=== PATIENT | male | born 1960 | race Caucasian/White ===

== ENCOUNTER → 2017-02-01 | Outpatient (CLI) | payer MEDICARE, BC, OTHER ==
[~2017-02-01] MED LIST: /CELE20CA PO; /FEXO18TA OR; BIOF4GEL2 TOP; CETI10TA PO; DEPA500T2 PO; FLEXERIL OR; GABA300C2 PO; MULTIVIT OR; OMEP40CA2 PO; PERC5TAB8 OR; PRAV40TA2 PO; PROP10TA8 PO; SOMA350T PO; SUMA50TA2 PO; ULTR50TA PO; VITA500C24 PO; VOLT1GEL2 TD; ZIPSOR OR
--- NOTE | 2017-02-01 16:49 | REP ---
CT Head without contrast HISTORY: Migraine headache COMPARISON: None There is no intraparenchymal hemorrhage, acute infarct, mass or midline shift. The ventricular system is normal in appearance. There is no extra cerebral collection. There is no fracture. The visualized sinuses are clear. IMPRESSION: There is no intracranial lesion. Signed by Azael Kumar MD 02/01/2017 04:40 P
--- NOTE | 2017-02-01 18:54 | REP ---
CT CERVICAL SPINE WITHOUT CONTRAST: HISTORY: Migraine headache. There is no acute fracture or subluxation. Disc bulges are present at the C5-6 and C6-7 levels. There is minimal narrowing of the spinal canal. Uncinate process hypertrophy is present at the C5-6 and C6-7 levels. This produces minimal narrowing of the neural foramina. The C5-6 and C6-7 intervertebral discs are decreased in height consistent with disc degeneration. IMPRESSION: There is cervical spondylosis at the C5-6 and C6-7 levels. Signed by Azael Kumar MD 02/02/2017 08:57 A
== END ==
LOC: M RAD 16:17
PROVIDERS: ATTEND Physician Assistant Medical
DX: G43.009 Migraine without aura, not intractable, without status migrainosus (principal); H53.8 Other visual disturbances

== ENCOUNTER 2019-10-09 06:47 | Day surgery (SDC) | payer MEDICARE, BC, OTHER ==
[~2019-10-09] VITALS: Ht 180.3 cm; Wt 79.4 kg
[~2019-10-09 06:47] MED LIST changes: -/CELE20CA PO; +CELE1CAP4 PO; +IRON65TA2 PO; +KP F1200 PO; +MODA200T15 PO; +MULTCAP PO; -OMEP40CA2 PO; +OMEP40CA97 PO; +PROP10TA56 PO; +QC A10TA PO; +RA T500C2 PO; +REST0.05 OD; +RIZA10TA2 PO; +TOPI25TA10 PO; +TRAM50TA2 PO; +[UNRECOGNIZED DRUG - CODE] EXT
[2019-10-09] MEDS ORDERED: propofoL 200 MG/20 ML VIAL As Ordered ONE (07:58)
--- NOTE | 2019-10-09 07:58 | ROOR ---
Patient Name: Kun Rhoades Procedure Date: 10/09/2019 7:30 AM Date of : 1960 Age: 59 Room: [facility] Gender: Male Note Status: Finalized Procedure: Colonoscopy Indications: Screening for colorectal malignant neoplasm Providers: Harrison HEMPHILL MD Referring MD: STEVE CENTENO NP Requesting Provider: Medicines: Monitored Anesthesia Care Complications: No immediate complications. Procedure: Pre-Anesthesia Assessment: - The heart rate, respiratory rate, oxygen saturations, blood pressure, adequacy of pulmonary ventilation, and response to care were monitored throughout the procedure. The Colonoscope was introduced through the anus and advanced to the cecum, identified by appendiceal orifice and ileocecal valve. The colonoscopy was performed without difficulty. The patient tolerated the procedure well. The quality of the bowel preparation was good. Findings: The perianal and digital rectal examinations were normal. The colon (entire examined portion) was redundant. Small Internal Hemorrhoids. The entire examined colon appeared normal on direct and retroflexion views. Impression: - Small Internal Hemorrhoids. - The entire examined colon is normal on direct and retroflexion views. - No specimens collected. Recommendation: - Repeat colonoscopy in 10 years for screening purposes. Harrison Hemphill MD Harrison HEMPHILL MD 10/09/2019 7:58:29 AM Electronically signed by Harrison HEMPHILL MD Number of Addenda: 0 Note Initiated On: 10/09/2019 7:30 AM Estimated Blood Loss: Estimated blood loss: none.
[2019-10-09 08:23] VITALS: BP 125/69
== END 2019-10-09 08:23 | disposition home or self-care (01) ==
LOC: M OPP 06:47
PROVIDERS: ATTEND Internal Medicine Gastroenterology
DX: Z12.11 Encounter for screening for malignant neoplasm of colon (principal); Q43.8 Other specified congenital malformations of intestine; K64.8 Other hemorrhoids; Z88.5 Allergy status to narcotic agent; Z88.8 Allergy status to other drugs, medicaments and biological substances; Z91.041 Radiographic dye allergy status

== ENCOUNTER → 2020-02-04 | Outpatient (REF) | payer MEDICARE, OTHER | LOC: M LAB REF 08:24 | PROVIDERS: ATTEND Dermatology | DX: C44.310 Basal cell carcinoma of skin of unspecified parts of face (principal) ==

== ENCOUNTER → 2020-03-08 | Outpatient (REF) | payer MEDICARE, OTHER | LOC: M LAB REF 12:56 | PROVIDERS: ATTEND Dermatology | DX: L90.5 Scar conditions and fibrosis of skin (principal) ==

== ENCOUNTER → 2020-06-29 | Outpatient (REF) | payer MEDICARE, OTHER | LOC: M LAB REF 19:01 | PROVIDERS: ATTEND Dermatology | DX: L57.0 Actinic keratosis (principal); D22.4 Melanocytic nevi of scalp and neck ==

== ENCOUNTER 2020-11-13 12:15 | Emergency (ER) | payer MEDICARE, BC, OTHER ==
[~2020-11-13] VITALS: Ht 177.8 cm; Wt 74.0 kg
--- OUTSIDE RECORDS SUMMARY | 2020-11-13 12:23 | CCD | Continuity of Care Document ---
Author Author Kun DURAN Organization Unknown Address [address] [place] [address] Phone [phone] Care Team Providers Care Net Software Engineer Name Role Phone Luz Marina Duran AUTM [phone] Problems Active Problems Provider Date Impotence of organic origin BARBARA Coates, PNP Onset: 1 10/16/2017 Malaise and fatigue BARBARA Coates PNP Onset: 8 Pure hypercholesterolemia BARBARA Coates PNP Onset: 12/2019 Obstructive sleep apnea syndrome BARBARA Coates PNP Ons et: 06/04/2020 Neck pain BARBARA Coates PNP Onset: 0 Migraine BARBARA Coates PNP Onset: 0 Gastroesophageal reflux disease BARBARA Coates PNP Onse t: 06/04/2020 Chronic pain syndrome BARBARA Coates PNP Onset: 020 Taking medication BARBARA Coates PNP Onset: 0 Transient acantholytic dermatosis BARBARA Coates PNP On set: 06/04/2020 Neoplasm of uncertain behavior of skin BARBARA 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 Onset: 06/04/2020 Vitamin D deficiency BARBARA Coates PNP Onset: 06/04/20 20 Insomnia BARBARA Coates PNP Onset: 0 Social History Type Date Description Comments Sex Unknown Tobacco Use Start: Unknown Never Smoked Cigarettes Tobacco Use Start: Unknown Never Smoked Cigars Tobacco Use Start: Unknown Never Smoked A Pipe Tobacco Use Start: Unknown Never Used Smokeless Tobacco ETOH Use Occasionally consumes alcohol Recreational Drug Use Never Used Drugs Tobacco Use Start: Unknown Patient has never smoked Recreational Drug Use Denies Drug Use Guns in Home No Smoke Alarms Carbon Monoxide Detector: Yes Smoke Alarms Yes Allergies, Adverse Reactions, Alerts Active Allergies Reaction Severity Comments Date Tylenol With Codeine pt only has 1 kidney Moderate 06/06/2018 NSAIDS Pt only has 1 Kidney Moderate 018 Medications Active Medications SIG Qnty Indications Ordering Provide r Date [id number] Ethyl Esters 1gm Caps ules Take 1 Capsule By Mouth Once Daily 90caps Juvenal Coates, PNP 10/23/2019 Pravastatin Sodium 40mg Tablets 1 tab by mouth every day at bedtime 90tabs BARBARA Coates, 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 12/09/2018 Vitamin D3 2000Unit Capsules 1 by mouth every day 90caps BARBARA Coates, PNP 10/21/19 19 Calcium 600 High Potency 600mg Tab lets 1 by mouth daily 90tabs BARBARA Coates, PNP 06/06/20 18 Modafinil 200mg Tablets take one tablet by mouth twice a day, maximum daily dose = two tablets 60tabs BARBARA Coates, PNP Viagra 50mg Tablets take 1 pill by mouth 30-60 minutes prior to sexual activity 16tabs BARBARA Campos, PNP Topamax 25mg Tablets 1 by mouth every day 180tabs BARBARA Coates, PNP Ferrous Gluconate 324(38Fe) mg Tab lets 1 by mouth every day 90tabs BARBARA Coates, PNP Zyrtec Allergy 10mg Tablets 1 by mouth every day 90tabs BARBARA Coates, PNP 00 Propranolol HCL 10mg Tablets Take One Tablet By Mouth Twice A Day 180tabs BARBARA Coates, PNP Restasis 0.05% Emulsion 1 drop each eye twice a day Unknown Cpap +4 [place] Unknown Triamcinolone Acetonide 0.1% Ointm ent Apply To Back Chest Abdomen Arms And Legs Two Times A Day - Derm at [facility] Unknown Rizatriptan Benzoate 10mg Tablets Dispers Dissolve 1 Tablet By Mouth AT Onset Of Headache May Repeat Once In 2 Hours as Needed Maximum Daily Dose 2 Tablets Unknown Calcipotriene 0.005% Ointment Apply To Affected Area S With Rash Two Times A Day Unkno wn Immunizations Description No Information Available Vital Signs Date Vital Result Comment 06/04/2020 9:08am BP Systolic 118 mmHg BP Diastolic 68 mmHg Heart Rate 54 /min Body Temperature 98.4 F Respiratory Rate 18 /min O2 % BldC Oximetry 98 % Weight 172.12 lb Weight 78.076 kg Height 70 inches 5'10" BMI (Body Mass Index) 24.7 kg/m2 BSA (Body Surface Area) 1.96 m2 12/03/2019 10:11am BP Systolic 114 mmHg BP Diastolic 64 mmHg Heart Rate 60 /min Body Temperature 98.2 F Respiratory Rate 16 /min O2 % BldC Oximetry 98 % Weight 178.50 lb Weight 80.968 kg Height 70 inches 5'10" BMI (Body Mass Index) 25.6 kg/m2 BSA (Body Surface Area) 1.99 m2 Results Description No Information Available Procedures Date Code Description Status 06/04/2020 95652 Admin Patient Focused Health Ris k Assessment Instrument Completed 06/04/2020 46965 Brief Emotional/Beha v Assessment W/ Scoring Doc Per Standard Inst Completed Medical Devices Description No Information Available Encounters Description No Information Available Assessments Date Code Description Provider 09/03/2020 Z00.01 Encounter for genera l adult medical examination with abnormal findings BARBARA Coates, PNP 09/03/2020 E78.00 Pure hypercholesterolemia, unspe cified BARBARA Coates, PNP 09/03/2020 I10 Essential (primary) hypertension BARBARA Coates, PNP 09/03/2020 R73.03 Prediabetes MAGDY Coates, PNP 09/03/2020 G47.33 Obstructive sleep apnea (adult) (pediatric) MAGDY Coates, PNP 09/03/2020 M54.2 Cervicalgia MAGDY Coates, PNP 09/03/2020 G43.909 Migraine, unspecifie d, not intractable, without status migrainosus BARBARA Coates, PNP 09/03/2020 E55.9 Vitamin D deficiency, unspecifie d BARBARA Coates, PNP 09/03/2020 K21.9 Gastro-esophageal reflux disease without esophagitis BARBARA Coates, PNP 09/03/2020 G89.4 Chronic pain syndrome BARBARA Coates, PNP 09/03/2020 Z79.899 Other detention (current) drug t herapy BARBARA Coates, PNP 06/04/2020 E78.00 Pure hypercholesterolemia, unspe cified BARBARA Coates, PNP 06/04/2020 I10 Essential (primary) hypertension BARBARA Coates, PNP 06/04/2020 R73.03 Prediabetes MAGDY Coates, PNP 06/04/2020 G47.33 Obstructive sleep apnea (adult) (pediatric) MAGDY Coates, PNP 06/04/2020 M54.2 Cervicalgia MAGDY Coates, PNP 06/04/2020 G43.909 Migraine, unspecifie d, not intractable, without status migrainosus BARBARA Coates, PNP 06/04/2020 E55.9 Vitamin D deficiency, unspecifie d BARBARA Coates, PNP 06/04/2020 K21.9 Gastro-esophageal reflux disease without esophagitis BARBARA Coates, PNP 06/04/2020 G89.4 Chronic pain syndrome BARBARA Coates, PNP 06/04/2020 Z79.899 Other terminal system operator (current) drug t herapy BARBARA Coaets, PNP Plan of Treatment 09/03/2020 - BARBARA Coates, PNP* Z00.01 Encounter for general adult medical examination with abnormal findings * E78.00 Pure hypercholesterolemia, unspecified * I10 Essential (primary) hypertension * R73.03 Prediabetes* Follow up:* IN 3 months, fasting lab first. * G47.33 Obstructive sleep apnea (adult) (pediatric) * M54.2 Cervicalgia * G43.909 Migraine, unspecified, not intractable, without status migrainosus * E55.9 Vitamin D deficiency, unspecified* Follow up:* FU in 3 months, fasting labs first. * K21.9 Gastro-esophageal reflux disease without esophagitis * G89.4 Chronic pain syndrome * Z79.899 Other terminal system operator (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* Follow up:* FU in 3 months, fasting labs first. Functional Status Description No Information Available Mental Status Description No Information Available Referrals Description No Information Available
--- OUTSIDE RECORDS SUMMARY | 2020-11-13 12:23 | CCD | Continuity of Care Document ---
Author Author Kun DURAN Organization Unknown Address [address] [place] [address] Phone [phone] Care Team Providers Care Nursing Officer Name Role Phone Luz Marina Duran AUTM [phone] Problems Active Problems Provider Date Impotence of [...] uncertain behavior of skin BARBARA Coates P FACILITY REHAB DIRECTOR Onset: 06/04/2020 Vitamin D deficiency BARBARA Coates [...] SIG Qnty Indications Ordering Provide r Date Nitrofurantoin Monohyd Macro 100mg Capsules one tab by mouth twice a day 14caps BARBARA Coates, PNP 09/03/2020 [id number]-[id number] Ethyl Esters 1gm Caps ules Take 1 Capsule By Mouth Once Daily 90caps Juvenal Coates, PNP 10/23/2019 Pravastatin Sodium 40mg Tablets 1 tab by mouth every day at bedtime 90tabs BARBARA Coates, P FACILITY REHAB DIRECTOR 12/09/2018 Vitamin D3 2000Unit Capsules 1 by [...] Two Times A Day - Derm at [facility] Unknown Rizatriptan Benzoate 10mg Tablets Dispers Dissolve 1 Tablet By Mouth AT Onset Of Headache May Repeat Once In 2 Hours as Needed Maximum Daily Dose 2 Tablets Unknown Calcipotriene 0.005% Ointment Apply To Affected Area S With Rash Two Times A Day Unkno wn Immunizations Description No Information Available Vital Signs Date Vital Result Comment 09/03/2020 9:03am BP Systolic 110 mmHg BP Diastolic 80 mmHg Heart Rate 58 /min Body Temperature 97.4 F Respiratory Rate 18 /min O2 % BldC Oximetry 100 % Weight 173.12 lb Weight 78.529 kg Height 70 inches 5'10" BMI (Body Mass Index) 24.8 kg/m2 BSA (Body Surface Area) 1.96 m2 06/04/2020 9:08am BP Systolic 118 mmHg BP Diastolic 68 mmHg Heart Rate 54 /min Body Temperature 98.4 F Respiratory Rate 18 /min O2 % BldC Oximetry 98 % Weight 172.12 lb Weight 78.076 kg Height 70 inches 5'10" BMI (Body Mass Index) 24.7 kg/m2 BSA (Body Surface Area) 1.96 m2 Results Test Acquired Date Facility Test Result H/L Range Note Inhouse Ua 09/03/2020 In Office Ua Color yellow Ua Appearance clear Spec [place] 1.015 Ua PH Test Strip 6 Leukocytes negative Ua Nitrate negative Ua Protein trace Inhouse Glucose normal Ua Ketones negative Urobilinogen normal Ua Bilirubin negative Blood trace Procedures Date Code Description Status 06/04/2020 08807 Admin Patient Focused Health Ris k Assessment Instrument Completed 06/04/2020 89667 Brief Emotional/Beha v Assessment W/ Scoring Doc Per Standard Inst Completed Medical Devices Description No Information Available Encounters Type Date Location Provider Dx Diagnosis Office Visit 09/03/2020 9:00a [facility] Da wn Roger, ANP-BC, PNP Z00.01 Encounter for general adult medical exam w abnormal findings R30.0 Dysuria R31.9 Hematuria, unspecified R80.9 Proteinuria, unspecified E78.00 Pure hypercholesterolemia, u nspecified I10 Essential (primary) hyperten yong R73.03 Prediabetes G47.33 Obstructive sleep apnea (julián lt) (pediatric) M54.2 Cervicalgia G43.909 Migraine, unsp, not intracta ble, without status migrainosus E55.9 Vitamin D deficiency, unspec ified K21.9 Gastro-esophageal reflux dis ease without esophagitis G89.4 Chronic pain syndrome Z79.899 Other detention (current) dr foster therapy Assessments Date Code Description Provider 09/03/2020 Z00.01 Encounter for genera l adult medical examination with abnormal findings BARBARA Coates, PNP 09/03/2020 R30.0 Dysuria MAGDY Coates, PNP 09/03/2020 R31.9 Hematuria, unspecified Luz Marina Scot t, BANNER, PNP 09/03/2020 R80.9 Proteinuria, unspecified Luz Marina Sc [facility]umiko, [facility] 09/03/2020 E78.00 Pure hypercholesterolemia, unspe cified BARBARA Coates, PNP 09/03/2020 I10 Essential (primary) hypertension BARBARA Coates, PNP 09/03/2020 R73.03 Prediabetes MAGDY Coates, PNP 09/03/2020 G47.33 Obstructive sleep apnea (adult) (pediatric) MAGDY Coates, PNP 09/03/2020 M54.2 Cervicalgia MAGDY Coates, PNP 09/03/2020 G43.909 Migraine, unspecifie d, not intractable, without status migrainosus BARBARA Coates, PNP 09/03/2020 E55.9 Vitamin D deficiency, unspecifie d BARBARA Cotaes, PNP 09/03/2020 K21.9 Gastro-esophageal reflux disease without [...] d, not intractable, without status migrainosus BARBARA Coaets, PNP 06/04/2020 E55.9 Vitamin D deficiency, unspecifie d BARBARA Coates, PNP 06/04/2020 K21.9 Gastro-esophageal reflux disease without esophagitis BARBARA Coates, PNP 06/04/2020 G89.4 Chronic pain syndrome BARBARA Coates, PNP 06/04/2020 Z79.899 Other longitudinal float operator (current) drug t 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 Recent labs reviewed. Goal is to keep his health issues stable so he can remain active and live independently. * Follow up:* FU in 6 months, fasting labs 1 week prior * R30.0 Dysuria* New Labs:* Cuture Urine, Scheduled: 09/03/20 * Comments:* Has inhouse urinalysis done which came back positive for UTI. Urine culture pending.To start Nitrofurantoin 100 mg 1 cap PO BID.We will continue to monitor. * R31.9 Hematuria, unspecified* New Labs:* Cuture Urine, Scheduled: 09/03/20 * Comments:* Has inhouse urinalysis done which came back positive for UTI. Urine culture pending.To start Nitrofurantoin 100 mg 1 cap PO BID.We will continue to monitor. * R80.9 Proteinuria, unspecified* New Labs:* Cuture Urine, Scheduled: 09/03/20 * Comments:* Has inhouse urinalysis done which came back positive for UTI. Urine culture pending.To start Nitrofurantoin 100 mg 1 cap PO BID.We will continue to monitor. * E78.00 Pure hypercholesterolemia, unspecified* Comments:* Labs reviewed with the patient in detail.Lipid panel showed:Cholesterol at 143.Triglycerides at 34.HDL at 58.LDL at 76.He will continue with his current regimen. He was encouraged to maintain a low cholesterol diet and a regular exercise regimen. Discussed dietary changes to improve, avoiding meat and dairy products, avoiding processed foodsDecrease saturated Fats (meat, dairy products and processed foods)Increase Unsaturated fats (fish, plants, nuts, seeds, beans and vegetable oils)Increase aerobic exerciseIncrease water intake Read Labels * Follow up:* FU 6 months, fasting labs prior * I10 Essential (primary) hypertension* Comments:* JNC8 Guidelines - Pt white male > 60 To continue with the prescribed Beta Boyd.BP is at goal 110/80. Continue current treatment and monitor. He will benefit from maintaining a low sodium diet. * R73.03 Prediabetes* Comments:* His fasting glucose is at 91 with an A1c at 5.7.He will benefit from maintaining a diabetic diet and a regular exercise regimen.Discussed decrease in sugar intake;No sugared drinksDo not keep sugar out where it can be readily usedNo concentrated sweets or baked goodsChoose fruits or vegetable snacksIncrease water intakeWe will continue to monitor. * Follow up:* IN 3 months, fasting lab first. * G47.33 Obstructive sleep apnea (adult) (pediatric)* Comments:* Pt uses CPAP/BiPAP nightly and finds it to be beneficial. * M54.2 Cervicalgia* Comments:* Currently stable. To continue current medication and plan of care.We will continue to monitor. 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 * E55.9 Vitamin D deficiency, unspecified* Comments:* Will continue current supplements. And will need to check her bloodwork periodically. * Follow up:* FU in 3 months, fasting labs first. * K21.9 Gastro-esophageal reflux disease without esophagitis* Comments:* Making a few lifestyle changes may help control the symptoms and signs caused by a GERD. Try to:Eat several smaller meals throughout the day rather than a few l arge mealsAvoid foods that trigger heartburn, such as fatty or fried foods, tomato sauce, chocolate, mint, garlic, onionAvoid lying down after a meal or eating late in the dayEat at least two to three hours before bedtime.Maintain a healthy weightStop smokingElevate the head of your bed 6 inches (about 15 centimeters) Advised pt to attempt slow taper and d/c omeprazole over several months, use TUMS for breakthrough symptoms due to side effects of PPI class * G89.4 Chronic pain syndrome* Comments:* Continue current treatment * Z79.899 Other longitudinal float operator (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* Comments:* Patient to continue to follow the current plan of care and to look for any new or worsening symptoms. We will continue to monitor through periodic blood work. * Follow up:* FU in 3 months, fasting labs first. Functional Status Description No Information Available Mental Status Description No Information Available Referrals Description No Information Available
--- OUTSIDE RECORDS SUMMARY | 2020-11-13 12:23 | CCD | Continuity of Care Document ---
Author Author Kun DURAN Organization Unknown Address [address] [place] [address] Phone [phone] Care Team Providers Care Computer Specialist Name Role Phone Luz Marina Duran AUTM [phone] Problems Active Problems Provider Date Impotence of [...] uncertain behavior of skin BARBARA Coates P POWDER EXPERT Onset: 06/04/2020 Vitamin D deficiency BARBARA Coates PNP Onset: 06/04/20 20 Insomnia BARBARA Coates PNP Onset: 0 Inguinal hernia Harrison Chan MD Onset: 11/04/2020 Social History Type Date Description Comments Sex [...] SIG Qnty Indications Ordering Provide r Date Ibuprofen 800mg Tablets 1 tab by mouth three times a day as needed 30tabs Harrison Chan MD 01/2021 Oabuq-6-Kden Ethyl Esters 1gm Caps ules take 1 capsule by mouth once daily 90caps Juvenal Coates, PNP 10/23/2019 Pravastatin Sodium 40mg Tablets 1 tab by mouth every day at bedtime 90tabs BARBARA Coates, P POWDER EXPERT 12/09/2018 Vitamin D3 2000Unit Capsules 1 by mouth every day 90caps BARBARA Coates, PNP 10/21/19 19 Calcium 600 High Potency 600mg Tab lets 1 by mouth daily 90tabs BARBARA Coates, PNP 06/06/20 18 Calcipotriene 0.005% Ointment Apply To Affected Area S With Rash Two Times A Day Unkno wn Rizatriptan Benzoate 10mg Tablets Dispers dissolve 1 tablet by mouth at onset of headache may repeat once in 2 hours as needed maximum daily dose 2 tablets 18tabs BARBARA Coates, PNP Triamcinolone Acetonide 0.1% Ointm ent Apply To Back Chest Abdomen Arms And Legs Two Times A Day - Derm at [facility] Unknown Cpap +4 [place] Unknown Restasis 0.05% Emulsion 1 drop each eye twice a day Unknown Propranolol HCL 10mg Tablets take one tablet by mouth twice a day 180tabs BARBARA Coates, PNP Zyrtec Allergy 10mg Tablets 1 by mouth every day 90tabs BARBARA Coates, PNP 00 Ferrous Gluconate 324(38Fe) mg Tab lets 1 by mouth every day 90tabs BARBARA Coates, PNP Topamax 25mg Tablets 1 by mouth every day 180tabs BARBARA Coates, PNP Viagra 50mg Tablets take 1 pill by mouth 30-60 minutes prior to sexual activity 16tabs BARBARA Campos, PNP Modafinil 200mg Tablets take one tablet by mouth twice a day maximum daily dose = 2 60tabs BARBARA Galvan, PNP History Medications Nitrofurantoin Monohyd Macro 100mg Capsules one tab by mouth twice a day 14caps BARBARA Coates, PNP 09/03/2020 - 10/01/2020 Immunizations Description No Information Available Vital Signs Date Vital Result Comment 11/04/2020 2:30pm BP Systolic 123 mmHg BP Diastolic 78 mmHg Heart Rate 70 /min Body Temperature 98.2 F Respiratory Rate 18 /min O2 % BldC Oximetry 98 % Weight 173.00 lb Weight 78.473 kg Height 70 inches 5'10" BMI (Body Mass Index) 24.8 kg/m2 BSA (Body Surface Area) 1.96 m2 11/02/2020 1:51pm BP Systolic 124 mmHg BP Diastolic 70 mmHg Heart Rate 68 /min Body Temperature 96.8 F Respiratory Rate 18 /min O2 % BldC Oximetry 98 % Weight 173.00 lb Weight 78.473 kg Height 70 inches 5'10" BMI (Body Mass Index) 24.8 kg/m2 BSA (Body Surface Area) 1.96 m2 Results Test Acquired Date Facility Test Result H/L Range Note Cuture Urine 09/03/2020 [facility] Culture Urine (SEE NOTE) 1, 2 Inhouse Ua 09/03/2020 In Office Ua Color yellow Ua Appearance clear Spec [place] 1.015 Ua PH Test Strip 6 Leukocytes negative Ua Nitrate negative Ua Protein trace Inhouse Glucose normal Ua Ketones negative Urobilinogen normal Ua Bilirubin negative Blood trace 1 {SPECIMEN TYPE: RANDOM 2 _CULTURE URINE_ ^$[id number] ^^430756 $$226814 ^^388709 $$[id number] $$909657 $$573591 $$648259 $$143587 $$650703 $$352264 $$186434 $$275477 $$133539 $$289572 $$103478 $$558747 $$841175 $$133315 $$181128 $$179004 $$112188 $$056223 $$463332 $$338554 $$694920 $$597681 ^^329147 $$472416 $$779550 $$914048 -- Continued on next page -- Patient: MARLA Odom Order: [id number] Page 2 Culture: CULTURE URINE Status: Final -- Continued on next page -- Patient: MARLA Odom Order: [id number] Page 2 Culture: CULTURE URINE Status: Prelim $$[id number] $$[id number] REPORTED DATE/TIME: 09/07/2020 15:06 Culture: CULTURE URINE Status: Final Urine Culture,Comprehensive: P1 No growth in 36 - 48 hours. Previous result entered on 09/06/2020 07:11 ET No growth after 18-24 hours. P1 [facility] #: [id number] [address] [place] [id number] [facility] [id number] Trash Man : Dilan Rodriguez MD NPI #: Security Program Manager : 09/06/[email or web address] REF 09/07/[email or web address].SENT REF Procedures Date Code Description Status 06/04/2020 92619 Admin Patient Focused Health Ris k Assessment Instrument Completed 06/04/2020 28348 Brief Emotional/Beha v Assessment W/ Scoring Doc Per Standard Inst Completed Medical Devices Description No Information Available Encounters Description No Information Available Assessments Date Code Description Provider 11/04/2020 K40.90 Unilateral inguinal hernia, without obstruction or gangrene, not specified as recurrent Harrison Chan MD 11/02/2020 E78.00 Pure hypercholesterolemia, unspe cified BARBARA Coates, PNP 11/02/2020 I10 Essential (primary) hypertension BARBARA Coates, PNP 11/02/2020 R73.03 Prediabetes MAGDY Coates, PNP 11/02/2020 G47.33 Obstructive sleep apnea (adult) (pediatric) MAGDY Coates, PNP 11/02/2020 M54.2 Cervicalgia MAGDY Coates, PNP 11/02/2020 G43.909 Migraine, unspecifie d, not intractable, without status migrainosus BARBARA Coates, PNP 11/02/2020 E55.9 Vitamin D deficiency, unspecifie d BARBARA Coates, PNP 11/02/2020 K21.9 Gastro-esophageal reflux disease without esophagitis BARBARA Coates, PNP 11/02/2020 G89.4 Chronic pain syndrome BARBARA Coates, PNP 11/02/2020 Z12.5 Encounter for screening for estelita gnant neoplasm of prostate BARBARA Coates, PNP 11/02/2020 Z79.899 Other longterm (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 BARBARA Coates, PNP 09/03/2020 Z00.01 Encounter for genera l adult medical examination with abnormal findings BARBARA Coates, PNP 09/03/2020 R30.0 Dysuria MAGDY Coates, PNP 09/03/2020 R31.9 Hematuria, unspecified Luz Marina Scot t, BARBARA, PNP 09/03/2020 R80.9 Proteinuria, unspecified Luz Marina Sc BARBARA calderon, PNP 09/03/2020 E78.00 Pure hypercholesterolemia, unspe cified [...] syndrome BARBARA Coates, PNP 09/03/2020 Z79.899 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 Plan: Repair of the left inguinal hernia with mesh. I reviewed the problem along with the operative procedure with the patient. Risks were also discussed, which would include but not be limited to, infection, bleeding, recurrence, and permanent pain. He doesn't that understands, and has no questions and wishes to proceed. Functional Status Description No Information Available Mental Status Description No Information Available Referrals Description No Information Available
--- OUTSIDE RECORDS SUMMARY | 2020-11-13 12:23 | CCD ---
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 37735918 Problem SK (seborrheic keratosis) L82.1 Active 221606 009 Problem AK (actinic keratosis) L57.0 Active 194542610 Problem Melanocytic nevi of face D22.30 Active 7818465 04 Problem Melanocytic nevi of right upper limb, including shoulder D22.61 Active 182164835 Problem History of nonmelanoma skin cancer Z85.828 Activ e 022699125 Problem Melanocytic nevi of trunk D22.5 Active 500466 002 Problem Olson angioma D18.01 Active 5073365 Problem Lentigines L81.4 Active 619891695 Problem Melanocytic nevi of left lower limb, including hip D22.72 Active [id number] Problem Melanocytic nevi of right lower limb, including hip D22.71 Active 297689648 Problem Melanocytic nevi of left upper limb, including shoulder D22.62 Active [id number] ALLERGIES Allergen (clinical drug ingredient) Drug/Non Drug Allergy do cumented on EMR Reaction Allergy Type Onset Date Status Codeine Phosphate([facility] Code:[address]-66) Nausea/Vomiting Drug Allergy Active NSAIDS one kidney Non Drug Allergy Active ibuprofen Ibuprofen(ND Code:[address]-02) one kidney Drug Allergy Active ENCOUNTERS from 1960 to 2020-09-05 Encounter Location Date Provider Diagnosis [facility] Dermatology [address] [place] [address] [address] [place] [address] Jun, Daniel Nahgillian Neoplasm of unspecified beha vior of bone, soft tissue, and skin D49.2 ; Screening, malignant neoplasm, skin Z12.83 ; 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 ; Melanocytic nevi of trunk D22.5 ; Melanocytic nevi of face D22.30 ; Multiple benign nevi of neck D22.4 ; Melanocytic nevi of left upper limb, including shoulder D22.62 ; Melanocytic nevi of right upper limb, including shoulder D22.61 ; Melanocytic nevi of right lower limb, including hip D22.71 ; Melanocytic nevi of left lower limb, including hip D22.72 ; AK (actinic keratosis) L57.0 ; SK (seborrheic keratosis) L82.1 ; History of nonmelanoma skin cancer Z85.828 ; Olson angioma D18.01 and Lentigines L81.4 IMMUNIZATIONS No Information SOCIAL HISTORY Tobacco Use: Social History Observation Description Date Details (start date - stop date) Never Smoker Sex Assigned At : Social History Observation Description Sex Assigned At Unknown Tobacco Use: Question Answer Notes Are you a: never smoker REASON FOR REFERRAL No Information VITAL SIGNS Weight 173.2 lbs Jun, Height 70 in Jun, BMI 24.85 kg/m2 Jun, Blood pressure systolic 114 mm Hg Jun, Blood pressure diastolic 72 mm Hg Jun, MEDICATIONS Medication SIG (Take, Route, Frequency, Duration) Notes Start Da te End Date Status Itraconazole 100 MG 2 capsules after meals Orally Monthly for 84 days Active Calcipotriene 0.005 % 1 application Externally Twi ce a day to areas with rash for 30 days Active Topiramate 25 MG TAKE ONE TABLET BY MOUTH EVERY DAY Oral for 90 Active Propranolol HCl 10 MG 1 tab Orally Once a day Active Iron Active Mihxx-2-elfx Ethyl Esters 1 GM TAKE 1 CAPSULE BY MOUTH ONCE PATEL Y Oral for 90 Active Multivitamin Active Provigil 100 MG 1 tablet in the morning Orally Once a day Active Pravastatin Sodium 40 MG TAKE ONE TABLET BY MOUTH AT BEDTIME Oral for 90 Active Biofreeze Active Triamcinolone Acetonide 0.1 % 1 application to back, c hest, abdomen, arms and legs Externally Twice a day for 30 Days Active Restasis 0.05 % 1 drop into affected eye Ophthalmic Twice a day Active Rizatriptan Benzoate 10 MG DISSOLVE 1 TABLET BY MOUTH AT ONSET OF HEADACHE MAY REPEAT ONCE IN 2 HOURS NEEDED MAXIMUM DAILY DOSE 2 TABLETS Oral for 5 Active Calcium Active Refresh Tears 0.5 % as directed Ophthalmic Active PROCEDURES No Information RESULTS No Results REASON FOR VISIT FBSE hx BCC MEDICAL (GENERAL) HISTORY Type Description Date Medical History Basal cell carcinoma of left forehead Surgical History Donated kidney 2014 - [facility] Goals Section No Information Health Concerns No Information MEDICAL EQUIPMENT No Information MENTAL STATUS No Information FUNCTIONAL STATUS No Information ASSESSMENTS Encounter Date Diagnosis Assessment Notes Treatment Notes Treatm ent Clinical Notes Jun, Neoplasm of unspecified beha vior of bone, soft tissue, and skin (ICD-10 - D49.2) Procedure: Tangential Biopsy [place] protocol was followed in compliance with [facility] standards. The patient was educated on the potential risks and benefits of the procedure and gave his/her informed consent. Location of biopsy noted in the physical exam and images uploaded to the medical record. Area(s) treated with EtOH. Local anesthesia performed with <1mL of 1% lidocaine with epinephrine per site. Site(s) verified with patient via timeout utilizing patient name and date of . Biopsy/Biopsies performed. Dual site-specimen cup verification performed verbally between provider and clinic staff. Hemostasis achieved with hyfrecation or aluminum chloride/styptic. Closure: secondary intent. Petrolatum and bandage applied. Wound care instruction addressed with patient by provider or clinic staff and wound care handout given. Patient tolerated the procedure well and left in stable condition. Patient reports that his/her pain was well-managed. There was no noted significant d ifference from baseline pain score after procedure. Patient was educated to use acetaminophen 500mg up to 4 times daily. If not sufficient, patient was educated to re-present to the dermatology clinic or, if after hours, the emergency department. Patient was informed they would be notified in 10-14 days by telephone for all malignant conditions and scheduled for definitive management. Jun, Screening, malignant neoplasm, skin (ICD-10 - Z1 2.83) Patient counseled on signs and symptoms of skin cancer including ABCDE's of Melanoma. Patient counseled to wear sunscreen or use sun protective clothing when outdoors. Avoid peak hours of sun between 10-2. Patient instructed to call with any new or changing lesions. 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 Start rx as above, continue TMC as above and mix new rx with TMC, apply only to areas with rash. There is likely a fungal overlay (noe derm) with his condition, thus I'm sending him once weekly itraconazole as above Jun, Melanocytic nevi of trunk (ICD-10 - D22.5) Benign, reassurance, ABCDE, photoprotection, Q 1 Y MD derm skin check, Q 1 M self skin check Jun, Melanocytic nevi of face (ICD-10 - D22.30) Benign, reassurance, ABCDE, photoprotection, Q 1 Y MD derm skin check, Q 1 M self skin check Jun, Multiple benign nevi of neck (ICD-10 - D22.4) Benign, reassurance, ABCDE, photoprotection, Q 1 Y MD derm skin check, Q 1 M self skin check Jun, Melanocytic nevi of left upp er limb, including shoulder (ICD-10 - D22.62) Benign, reassurance, ABCDE, photoprotection, Q 1 Y MD derm skin check, Q 1 M self skin check Jun, Melanocytic nevi of right up per limb, including shoulder (ICD-10 - D22.61) Benign, reassurance, ABCDE, photoprotection, Q 1 Y MD derm skin check, Q 1 M self skin check Jun, Melanocytic nevi of right lo wer limb, including hip (ICD-10 - D22.71) Benign, reassurance, ABCDE, photoprotection, Q 1 Y MD derm skin check, Q 1 M self skin check Jun, Melanocytic nevi of left low er limb, including hip (ICD-10 - D22.72) Benign, reassurance, ABCDE, photoprotection, Q 1 Y MD derm skin check, Q 1 M self skin check Jun, AK (actinic keratosis) (ICD-10 - L57.0) Cryotherapy x [5 ] number of sites. Prescott protocol was followed in compliance with [facility] standards. Patient was counseled regarding the indication for treatment (precancerous state for actinic keratosis or cosmetic reasons if done for seborrheic keratoses, acrochordons or warts) as well as, the method and expected results to include compromise of the skin barrier, bleeding, scarring/white area, redness at site, lesion recurrence, and pain. Patient was consented to the risks and benefits of the procedure and gave informed consent. Lesion(s) with locations as indicated in the physical examination were treated. Lesion(s) were treated with 2 cycles of liquid nitrogen with a thaw time of at least ten seconds. Therapy was applied in a pulsed fashion to minimize collateral tissue injury. Patient was instructed to use Vaseline ointment to the area(s) until healed. Patient tolerated the procedure well and left in stable condition. Pain before and after the procedure were assessed to not be significantly different than baseline. Jun, SK (seborrheic keratosis) (ICD-10 - L82.1) Benign, reassurance Jun, History of nonmelanoma skin cancer (ICD-10 - Z85 .828) NER, photoprotection Jun, Olson angioma (ICD-10 - D18.01) Benign, reassurance Jun, Lentigines (ICD-10 - L81.4) Benign, reassurance, ABCDE, photoprotection, Q 1 Y MD derm skin check, Q 1 M self skin check PLAN OF TREATMENT Medication Medication Name Sig Start Date Stop Date Calcipotriene 0.005 % 1 application Externally Twi ce a day to areas with rash for 30 days Triamcinolone Acetonide 0.1 % 1 application to back, c hest, abdomen, arms and legs Externally Twice a day for 30 Days Itraconazole 100 MG 2 capsules after meals Orally Monthly for 84 days Treatment Notes Assessment Notes Clinical Notes Olson angioma Benign, reassurance Neoplasm of unspecified behavior of bone, soft tissue, and skin Procedure: Tangential Biopsy [place] protocol was followed in compliance with [facility] standards. The patient was educated on the potential risks and benefits of the procedure and gave his/her informed consent. Location of biopsy noted in the physical exam and images uploaded to the medical record. Area(s) treated with EtOH. Local anesthesia performed with <1mL of 1% lidocaine with epinephrine per site. Site(s) verified with patient via timeout utilizing patient name and date of . Biopsy/Biopsies performed. Dual site-specimen cup verification performed verbally between provider and clinic staff. Hemostasis achieved with hyfrecation or aluminum chloride/styptic. Closure: secondary intent. Petrolatum and bandage applied. Wound care instruction addressed with patient by provider or clinic staff and wound care handout given. Patient tolerated the procedure well and left in stable condition. Patient reports that his/her pain was well-managed. There was no noted significant d ifference from baseline pain score after procedure. Patient was educated to use acetaminophen 500mg up to 4 times daily. If not sufficient, patient was educated to re-present to the dermatology clinic or, if after hours, the emergency department. Patient was informed they would be notified in 10-14 days by telephone for all malignant conditions and scheduled for definitive management. History of nonmelanoma skin cancer NER, photoprotection Screening, malignant neoplasm, skin Patient counseled on signs and symptoms of skin cancer including ABCDE's of Melanoma. Patient counseled to wear sunscreen or use sun protective clothing when outdoors. Avoid peak hours of sun between 10 -2. Patient instructed to call with any new or changing lesions. Transient acantholytic dermatosis [[place]] Also known as [place]'s disease, he feels that TMC ointment is not helping by itself. Start rx as above, continue TMC as above and mix new rx with TMC, apply only to areas with rash. There is likely a fungal overlay (noe derm) with his condition, thus I'm sending him once weekly itraconazole as above Lentigines Benign, reassurance, ABCDE, photoprotection, Q 1 Y derm skin check, Q 1 M self skin check Melanocytic nevi of trunk Benign, reassurance, ABCDE, photoprotection, Q 1 Y derm skin check, Q 1 M self skin check Melanocytic nevi of face Benign, reassurance, ABCDE, photoprotection, Q 1 Y MD derm skin check, Q 1 M self skin check Multiple benign nevi of neck Benign, reassurance, ABCD E, photoprotection, Q 1 Y derm skin check, Q 1 M self skin check Melanocytic nevi of left upper limb, including shoulde r Benign, reassurance, ABCDE, photoprotection, Q 1 Y derm skin check, Q 1 M self skin check SK (seborrheic keratosis) Benign, reassurance AK (actinic keratosis) Cryotherapy x [5 ] number of sites. [place] protocol was followed in compliance with [facility] standards. Patient was counseled regarding the indication for treatment (precancerous state for actinic keratosis or cosmetic reasons if done for seborrheic keratoses, acrochordons or warts) as well as, the method and expected results to include compromise of the skin barrier, bleeding, scarring/white area, redness at site, lesion recurrence, and pain. Patient was consented to the risks and benefits of the procedure and gave informed consent. Lesion(s) with locations as indicated in the physical examination were treated. Lesion(s) were treated with 2 cycles of liquid nitrogen with a thaw time of at least ten seconds. Therapy was applied in a pulsed fashion to minimize collateral tissue injury. Patient was instructed to use Vaseline ointment to the area(s) until healed. Patient tolerated the procedure well and left in stable condition. Pain before and after the procedure were assessed to not be significantly different than baseline. Melanocytic nevi of right upper limb, including should er Benign, reassurance, ABCDE, photoprotection, Q 1 Y derm skin check, Q 1 M self skin check Melanocytic nevi of right lower limb, including hip Be nign, reassurance, ABCDE, photoprotection, Q 1 Y MD derm skin check, Q 1 M self skin check Melanocytic nevi of left lower limb, including hip Donn ign, reassurance, ABCDE, photoprotection, Q 1 Y MD derm skin check, Q 1 M self skin check Next Appt Details Per path, o/w 6 M - 1 Y Reason:FBSE Follow Up:Per path, o/w 6 M - 1 YFBSE Insurance Providers Payer Name Payer Address Payer Phone Insured Name Patient Relati onship to Insured Coverage Start Date Coverage End Date [facility] [address] [facility] [id number] [phone] TERESSA GUTIÉRREZ MEDICARE Part A and B [address] [facility] [id number] TERESSA GUTIÉRREZ
--- OUTSIDE RECORDS SUMMARY | 2020-11-13 12:23 | CCD | Continuity of Care Document ---
Author Kun Sorto P.A.-C. Organization Unknown Address [address] [place] [address] Phone [phone] Care Team Providers Care Graining Operator Name Role Phone Roger Luz Marina FORM LAYER-BC AUTM [phone] Problems Description No Information Available Social History Type Date Description Comments Sex Unknown Allergies, Adverse Reactions, Alerts Active Allergies Reaction Severity Comments Date Codeine n/v 06/06/2013 NSAIDs only one kidney 04/27/2015 Medications Active Medications SIG Qnty Indications Ordering Provide r Date Rizatriptan Benzoate 10mg Tablets Dispers Take One Tablet By Mouth AT Onset Of Headache, May Repeat Once In Two Hours as Needed, Maximum Daily Dose = Two Tablets 9tabs G43.009 Maciel trammell M.D. 10/09/2019 Topamax 25mg Tablets 1 po greta ly 90tabs Patricia Kim M.D. 04/19/2017 Propranolol HCL 10mg Tablets Take One Tablet By Mouth Twice A Day 180tabs Patricia Kim M.D. Immunizations Description No Information Available Vital Signs Date Vital Result Comment 08/18/2020 6:08am BP Systolic 120 mmHg BP Diastolic 80 mmHg Heart Rate 68 /min Respiratory Rate 16 /min 11/17/2019 7:03am BP Systolic 118 mmHg BP Diastolic 84 mmHg Heart Rate 64 /min Respiratory Rate 16 /min Results Description No Information Available Procedures Description No Information Available Medical Devices Description No Information Available Encounters Type Date Location Provider Dx Diagnosis Office Visit 08/18/2020 8:15a Main office - [place] Samina holly P.A.-C. G43.709 Chronic migraine w/o aura, not intractab le, w/o stat migr M54.2 Cervicalgia R41.840 Attention and concentration deficit Office Visit 05/17/2020 8:30a Main office - [place] Willy BrandtA.-C. G43.709 Chronic migraine w/o aura, not intractab le, w/o stat migr R41.840 Attention and concentration deficit M54.2 Cervicalgia M62.838 Other muscle spasm Assessments Date Code Description Provider 08/18/2020 G43.709 Chronic migraine wit hout aura, not intractable, without status migrainosus Samina Dolan P.A.-C. 08/18/2020 M54.2 Cervicalgia Samina Dolan P.A.-C. 08/18/2020 R41.840 Attention and concentration defi cit Samina Dolan P.A.-C. 05/17/2020 G43.709 Chronic migraine wit hout aura, not intractable, without status migrainosus Samina Dolan P.A.-C. 05/17/2020 R41.840 Attention and concentration defi cit Samina Dolan P.A.-C. 05/17/2020 M54.2 Cervicalgia Samina Dolan P.A.-C. 05/17/2020 M62.838 Other muscle spasm Sandy Barnes.A.-CTrisha Plan of Treatment Future Appointment(s):* 11/18/2020 10:00 am - Willy TalaveraA.-CTrisha at Main office - [place] 08/18/2020 - Sandy Talavera.A.-C.* G43.709 Chronic migraine without aura, not intractable, without status migrainosus* Comments:* Controlled. * M54.2 Cervicalgia* Comments:* Stable. * R41.840 Attention and concentration deficit* Comments:* Stable. * Follow up:* 3 months Functional Status Description No Information Available Mental Status Description No Information Available Referrals Description No Information Available
--- OUTSIDE RECORDS SUMMARY | 2020-11-13 12:23 | CCD | Continuity of Care Document ---
Author Author Kun DURAN Organization Unknown Address [address] [place] [address] Phone [phone] Care Team Providers Care Private Branch Exchange Repairer Name Role Phone Luz Marina Duran AUTM [phone] Problems Active Problems Provider Date Impotence of [...] uncertain behavior of skin BARBARA Coates P CAKE PUNCHER Onset: 06/04/2020 Vitamin D deficiency BARBARA Coates [...] a day 14caps BARBARA Coates, PNP 09/03/2020 [id number] Ethyl Esters 1gm Caps ules Take 1 Capsule By Mouth Once Daily 90caps Juvenal Coates, PNP 10/23/2019 Pravastatin Sodium 40mg Tablets 1 tab by mouth every day at bedtime 90tabs BARBARA Coates, P CAKE PUNCHER 12/09/2018 Vitamin D3 2000Unit Capsules 1 by [...] Ua Color yellow Ua Appearance clear Spec [place] 1.015 Ua PH Test Strip 6 Leukocytes negative Ua Nitrate negative Ua Protein trace Inhouse Glucose normal Ua Ketones negative Urobilinogen normal Ua Bilirubin negative Blood trace Procedures Date Code Description Status 06/04/2020 06933 Admin Patient Focused Health Ris k Assessment Instrument Completed 06/04/2020 00687 Brief Emotional/Beha v Assessment W/ Scoring Doc Per Standard Inst Completed Medical Devices Description No Information Available Encounters Description No Information Available Assessments Date Code Description Provider 09/03/2020 Z00.01 Encounter for genera l adult medical examination with abnormal findings BARBARA Coates, PNP 09/03/2020 R30.0 Dysuria MAGDY Coates, PNP 09/03/2020 E78.00 Pure hypercholesterolemia, unspe [...] syndrome BARBARA Coates, PNP 09/03/2020 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 Recent labs reviewed. Goal is to keep his health issues stable so he can remain active and live independently. * Follow up:* FU in 6 months, fasting labs 1 week prior * R30.0 Dysuria* New Labs:* Cuture Urine, Ordered: 09/03/20 * E78.00 Pure hypercholesterolemia, unspecified* Comments:* Labs [...] status migrainosus* Comments:* Currently stable.To continue Maxalt SLAG EXPANDER as per Neurology.We will continue to monitor. [...] Comments:* Continue current treatment * Z79.899 Other longterm (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* Comments:* Patient to continue [...]
--- OUTSIDE RECORDS SUMMARY | 2020-11-13 12:23 | CCD | Continuity of Care Document ---
Author Author Kun DOLAN P.A.-C. Organization Unknown Address [address] [place], [place] [address] Phone [phone] Care Team Providers Care Community Support Specialist Name Role Phone Roger Luz Marina HARD CANDY BATCH MIXER-BC AUTM [phone] Problems Description No Information Available Social History [...] Available Vital Signs Date Vital Result Comment 11/17/2019 7:03am BP Systolic 118 mmHg BP Diastolic 84 mmHg Heart Rate 64 /min Respiratory Rate 16 /min 05/16/2019 2:41pm BP Systolic 124 mmHg BP Diastolic 80 mmHg Heart Rate 80 /min Respiratory Rate 16 /min Results Description No Information Available Procedures Description No Information Available Medical Devices Description No Information Available Encounters Type Date Location Provider Dx Diagnosis Office Visit 05/17/2020 8:30a Main office - [place] Samina holly P.A.-C. G43.709 Chronic migraine w/o aura, not intractab le, w/o stat migr R41.840 Attention and concentration deficit M54.2 Cervicalgia M62.838 Other muscle spasm Assessments Date Code Description Provider 08/18/2020 G43.709 Chronic migraine wit hout aura, not intractable, without status migrainosus Samina Dolan P.A.-C. 08/18/2020 M54.2 Cervicalgia Sandy Talavera.A.-CTrisha 08/18/2020 M62.838 Other muscle spasm Samina tafoya P.A.-CTrisha 08/18/2020 R41.840 Attention and concentration defi cit Samina Dolan P.A.-C. 05/17/2020 G43.709 Chronic migraine wit hout aura, not intractable, without status migrainosus Samina Dolan P.A.-C. 05/17/2020 R41.840 Attention and concentration defi cit Samina Dolan P.A.-C. 05/17/2020 M54.2 Cervicalgia Samina Dolan P.A.-C. 05/17/2020 M62.838 Other muscle spasm Sandy Barnes.A.-CTrisha Plan of Treatment No Information Available Functional Status Description No Information Available Mental Status Description No Information Available Referrals Description No Information Available
--- OUTSIDE RECORDS SUMMARY | 2020-11-13 12:23 | CCD | Continuity of Care Document ---
Author Author Kun DURAN Organization Unknown Address [address] [place] [address] Phone [phone] Care Team Providers Care Outside Contractor Sales Name Role Phone Luz Marina Duran AUTM [phone] Problems Active Problems Provider Date Impotence of [...] uncertain behavior of skin BARBARA Coates P TEAM GUIDE Onset: 06/04/2020 Vitamin D deficiency BARBARA Coates [...] SIG Qnty Indications Ordering Provide r Date Ogdwo-3-Mqhs Ethyl Esters 1gm Caps ules take 1 capsule by mouth once daily 90caps Juvenal Coates, PNP 10/23/2019 Pravastatin Sodium 40mg Tablets 1 tab by mouth every day at bedtime 90tabs BARBARA Coates, P TEAM GUIDE 12/09/2018 Vitamin D3 2000Unit Capsules 1 by mouth every day 90caps BARBARA Coates, PNP 10/21/19 19 Calcium 600 High Potency 600mg Tab lets 1 by mouth daily 90tabs BARBARA Coates, PNP 06/06/20 18 Modafinil 200mg Tablets take one tablet by mouth twice a day maximum daily dose = 2 60tabs BARBARA Galvan, PNP Viagra 50mg Tablets take 1 pill [...] Coates, PNP 00 Propranolol HCL 10mg Tablets take one tablet by mouth twice a day 180tabs BARBARA Coates, PNP Restasis 0.05% Emulsion 1 drop each eye twice a day Unknown Cpap +4 [place] Unknown Triamcinolone Acetonide 0.1% Ointm ent Apply To Back Chest Abdomen Arms And Legs Two Times A Day - Derm at [facility] Unknown Rizatriptan Benzoate 10mg Tablets Dispers dissolve 1 tablet by mouth at onset of headache may repeat once in 2 hours as needed maximum daily dose 2 tablets 18tabs BARBARA Coates, PNP Calcipotriene 0.005% Ointment Apply To Affected Area S With Rash Two Times A Day Unkno wn History Medications Nitrofurantoin Monohyd Macro 100mg Capsules one tab by mouth twice a day 14caps BARBARA Coates, PNP 09/03/2020 - 10/01/2020 Immunizations Description No Information Available Vital Signs Date Vital Result Comment 11/02/2020 1:51pm BP Systolic 124 mmHg BP Diastolic 70 mmHg Heart Rate 68 /min Body Temperature 96.8 F Respiratory Rate 18 /min O2 % BldC Oximetry 98 % Weight 173.00 lb Weight 78.473 kg Height 70 inches 5'10" BMI (Body Mass Index) 24.8 kg/m2 BSA (Body Surface Area) 1.96 m2 09/03/2020 9:03am BP Systolic 110 mmHg BP Diastolic 80 mmHg Heart Rate 58 /min Body Temperature 97.4 F Respiratory Rate 18 /min O2 % BldC Oximetry 100 % Weight 173.12 lb Weight 78.529 kg Height 70 inches 5'10" BMI (Body Mass Index) 24.8 kg/m2 BSA (Body Surface Area) 1.96 m2 Results Test Acquired Date Facility Test Result H/L Range Note Cuture Urine 09/03/2020 [facility] Culture Urine (SEE NOTE) 1, 2 Inhouse Ua 09/03/2020 In Office Ua Color yellow Ua Appearance clear Spec [place] 1.015 Ua PH Test Strip 6 Leukocytes negative Ua Nitrate negative Ua Protein trace Inhouse Glucose normal Ua Ketones negative Urobilinogen normal Ua Bilirubin negative Blood trace 1 {SPECIMEN TYPE: RANDOM 2 _CULTURE URINE_ ^$456248 ^^258267 $$477479 ^^560534 $$495182 $$131962 $$792312 $$603826 $$935278 $$984815 $$607557 $$944239 $$737929 $$697601 $$850934 $$908532 $$476821 $$268427 $$636850 $$830670 $$309351 $$296957 $$752300 $$301001 $$010917 $$604929 $$945492 ^^198334 $$485419 $$774055 $$287141 -- Continued on next page -- Patient: MARLA Odom Order: [id number] Page 2 Culture: CULTURE URINE Status: Final -- Continued on next page -- Patient: MARLA Odom Order: [id number] Page 2 Culture: CULTURE URINE Status: Prelim $$[id number] $$[id number] REPORTED DATE/TIME: 09/07/2020 15:06 Culture: CULTURE URINE Status: Final Urine Culture,Comprehensive: P1 No growth in 36 - 48 hours. Previous result entered on 09/06/2020 07:11 ET No growth after 18-24 hours. P1 Test performed by: [facility] #: [id number] [address] [place] [id number] [facility] [address] Cereal Popper : Dilan Rodriguez MD NPI #: Outside Plant Field Engineer : 09/06/20.835.XMT.SENT REF 09/07/20.2034.XMT.SENT REF Procedures Date Code Description Status 06/04/2020 16935 Admin Patient Focused Health Ris k Assessment Instrument Completed 06/04/2020 04270 Brief Emotional/Beha v Assessment W/ Scoring Doc Per Standard Inst Completed Medical Devices Description No Information Available Encounters Description No Information Available Assessments Date Code Description Provider 11/02/2020 E78.00 Pure hypercholesterolemia, unspe cified BARBARA [...] prostate BARBARA Coates, PNP 11/02/2020 Z79.899 Other long-term (current) drug t herapy BARBARA Coates, PNP 09/03/2020 Z00.01 Encounter for genera l adult medical examination with abnormal findings BARBARA Coates, PNP 09/03/2020 R30.0 Dysuria MAGDY Coates, PNP 09/03/2020 R31.9 Hematuria, unspecified Luz Marina Scot lucia, BARBARA, PNP 09/03/2020 R80.9 Proteinuria, unspecified BARBARA Galvan, PNP 09/03/2020 E78.00 Pure hypercholesterolemia, unspe cified [...] syndrome BARBARA Coates, PNP 09/03/2020 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 Routine labs ordered.He will continue with his current regimen. He was encouraged to maintain a low cholesterol diet and a regular exercise regimen. Discussed dietary changes to improve, avoiding meat and dairy products, avoiding processed foodsDecrease saturated Fats (meat, dairy products and processed foods)Increase Unsaturated fats (fish, plants, nuts, seeds, beans and vegetable oils)Increase aerobic exerciseIncrease water intake Read Labels * I10 Essential (primary) hypertension* Comments:* JNC8 Guidelines - Pt white male > 60 To continue with the prescribed Beta Boyd.BP is at goal 124/70. Continue current treatment and monitor. He will benefit from maintaining a low sodium diet. * R73.03 Prediabetes* New Labs:* CBC W/Auto Differential, Scheduled: 11/02/20 * CMP W/Egfr, Scheduled: 11/02/20 * Hemoglobin A1c, Scheduled: 11/02/20 * Lipid Panel, Scheduled: 11/02/20 * TSH Ultrasensitive, Scheduled: 11/02/20 * Comments:* He is due for his routine labs. Routine labs ordered.He will benefit from maintaining a diabetic diet and a regular exercise regimen.Discussed decrease in sugar intake;No sugared drinksDo not keep sugar out where it can be readily usedNo concentrated sweets or baked goodsChoose fruits or vegetable snacksIncrease water intakeWe will continue to monitor. * Follow up:* IN 3 months, fasting lab first. * G47.33 Obstructive sleep apnea (adult) (pediatric)* Comments:* Pt uses CPAP nightly and finds it to be beneficial.We will continue to monitor. * M54.2 Cervicalgia* Comments:* Currently stable. To continue current medication and plan of care.We will continue to monitor. * G43.909 Migraine, unspecified, not intractable, without status migrainosus* Comments:* Currently stable.To continue Maxalt FAMILY SERVICES ASSISTANT as per Neurology.We will continue to monitor. * E55.9 Vitamin D deficiency, unspecified* Comments:* We will continue current supplements. We will need to check her bloodwork periodically. * Follow up:* FU in 3 months, fasting labs first. * K21.9 Gastro-esophageal reflux disease without esophagitis* New Labs:* CBC W/Auto Differential, Scheduled: 11/02/20 * Comments:* Making a few lifestyle changes may help control the symptoms and signs caused by a GERD. Try to:Eat several smaller meals throughout the day rather than a few large mealsAvoid foods that trigger heartburn, such as fatty or fried foods, tomato sauce, chocolate, mint, garlic, onionAvoid lying down after a meal or eating late in the dayEat at least two to three hours before bedtime.Maintain a healthy weightStop smokingElevate the head of your bed 6 inches (about 15 centimeters) Has dc'd omeprazole, use TUMS for breakthrough symptoms due to side effects of PPI class * G89.4 Chronic pain syndrome* Comments:* Continue current treatment * Z12.5 Encounter for screening for malignant neoplasm of prostate* New Labs:* PSA Free & Total, Scheduled: 11/02/20 * Comments:* Patient was given a lab order to have his PSA done for further evaluation and management.We will continue to monitor. * Z79.899 Other long-term (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* New Labs:* CBC W/Auto Differential, Scheduled: 11/02/20 * CMP W/Egfr, Scheduled: 11/02/20 * Hemoglobin A1c, Scheduled: 11/02/20 * Lipid Panel, Scheduled: 11/02/20 * TSH Ultrasensitive, Scheduled: 11/02/20 * PSA Free & Total, Scheduled: 11/02/20 * Comments:* Patient to continue to follow the current plan of care and to look for any new or worsening symptoms. We will continue to monitor through periodic blood work. * Follow up:* FU in 3 months, fasting labs first. Functional Status Description No Information Available Mental Status Description No Information Available Referrals Description No Information Available
--- OUTSIDE RECORDS SUMMARY | 2020-11-13 12:23 | CCD | Continuity of Care Document ---
Author Author Kun CHAN MD Organization Unknown Address [address] [place] [address] Phone [phone] Care Team Providers Care Button Riveter Name Role Phone Luz Marina Duran AUTM [phone] Problems Active Problems Provider Date Impotence of organic origin BARBARA Coates PNP Onset: 1 10/16/2017 Malaise and fatigue BARBARA Coates PNP Onset: 8 Pure hypercholesterolemia BARBARA Coates PNP Onset: 12/2019 Obstructive sleep apnea syndrome BARBARA Coaets PNP Ons et: 06/04/2020 Neck pain BARBARA Coates PNP Onset: 0 Migraine BARBARA Coates PNP Onset: 0 Gastroesophageal reflux disease BARBARA Coates PNP Onse t: 06/04/2020 Chronic pain syndrome BARBARA Coates PNP Onset: 020 Taking medication BARBARA Coates PNP Onset: 0 Transient acantholytic dermatosis BARBARA Coates PNP On set: 06/04/2020 Neoplasm of uncertain behavior of skin BARBARA Coates P FILM WASHER Onset: 06/04/2020 Vitamin D deficiency BARBARA Coates [...] as needed 30tabs Harrison Chan MD 01/2021 Jeovp-2-Tcvv Ethyl Esters 1gm Caps ules take 1 capsule by mouth once daily 90caps Juvenal Coates, PNP 10/23/2019 Pravastatin Sodium 40mg Tablets 1 tab by mouth every day at bedtime 90tabs BARBARA Coates, P FILM WASHER 12/09/2018 Vitamin D3 2000Unit Capsules 1 by mouth every day 90caps BARBARA Cotaes, PNP 10/21/19 19 Calcium 600 High Potency [...] Two Times A Day - [place] [facility] [place] Cpap +4 [place] Unknown Restasis 0.05% [...] Result H/L Range Note Cuture Urine 09/03/2020 [facility] Culture Urine (SEE NOTE) 1, 2 Inhouse Ua 09/03/2020 In Office Ua Color yellow Ua Appearance clear Spec [place] 1.015 Ua PH Test Strip 6 Leukocytes negative Ua Nitrate negative Ua Protein trace Inhouse Glucose normal Ua Ketones negative Urobilinogen normal Ua Bilirubin negative Blood trace 1 {SPECIMEN TYPE: RANDOM 2 _CULTURE URINE_ ^$305824 ^^706040 $$982296 ^^118007 $$504431 $$072762 $$683846 $$952993 $$676145 $$315031 $$946532 $$030982 $$428373 $$028954 $$061924 $$611333 $$856349 $$487164 $$750797 $$069631 $$718332 $$814698 $$395491 $$870109 $$358728 $$241542 $$965164 ^^543403 $$596693 $$661129 $$680447 -- Continued on next page -- Patient: MARLA Odom Order: [id number] Page 2 Culture: CULTURE URINE Status: Final -- Continued on next page -- Patient: MARLA Odom Order: [id number] Page 2 Culture: CULTURE URINE Status: Prelim $$[id number] $$[id number] REPORTED DATE/TIME: 09/07/2020 15:06 Culture: CULTURE URINE Status: Final Urine Culture,Comprehensive: P1 No growth in 36 - 48 hours. Previous result entered on 09/06/2020 07:11 ET No growth after 18-24 hours. 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
--- OUTSIDE RECORDS SUMMARY | 2020-11-13 12:24 | CCD ---
Author Author [facility] Organization [facility] Address Unknown Phone Unavailable Care Team Providers Care Ion Exchange Operator Name Role Phone RogerKeilyn RPA Unavailable Unavailable Roger, M Luz Marina RPA Unavailable Unavailable Roger, M Luz Marina RPA Unavailable Unavailable Roger, M Luz Marina RPA Unavailable Unavailable Roger, M Luz Marina RPA Unavailable Unavailable Roger, M Luz Marina RPA Unavailable Unavailable Roger, M Luz Marina RPA Unavailable Unavailable Roger, M Luz Marina RPA Unavailable Unavailable Roger, M Luz Marina RPA Unavailable Unavailable Roger, M Luz Marina RPA Unavailable Unavailable Roger, M Luz Marina RPA Unavailable Unavailable Roger, M Luz Marina RPA Unavailable Unavailable Roger, M Luz Marina RPA Unavailable Unavailable Rgoer, M Luz Marina RPA Unavailable Unavailable Roger, M Luz Marina RPA Unavailable Unavailable Roger, M Luz Marina RPA Unavailable Unavailable Roger, M Luz Marina RPA Unavailable Unavailable Roger, M Luz Marina RPA Unavailable Unavailable Roger, M Luz Marina RPA Unavailable Unavailable Roger, M Luz Marina RPA Unavailable Unavailable Roger, M Luz Marina RPA Unavailable Unavailable Roger, M Luz Marina RPA Unavailable Unavailable Roger, M Luz Marina RPA Unavailable Unavailable Roger, M Luz Marina RPA Unavailable Unavailable Roger, M Luz Marina RPA Unavailable Unavailable Roger, M Luz Marina RPA Unavailable Unavailable Roger, M Luz Marina RPA Unavailable Unavailable Roger, M Luz Marina RPA Unavailable Unavailable Roger, M Luz Marina RPA Unavailable Unavailable Roger, M Luz Marina RPA Unavailable Unavailable Roger, M Luz Marina RPA Unavailable Unavailable Roger, M Luz Marina RPA Unavailable Unavailable Roger, M Luz Marina RPA Unavailable Unavailable Roger, M Luz Marina RPA Unavailable Unavailable Roger, M Luz Marina RPA Unavailable Unavailable Roger, M Luz Marina RPA Unavailable Unavailable Roger, M Luz Marina RPA Unavailable Unavailable Roger, M Luz Marina RPA Unavailable Unavailable Roger, M Luz Marina RPA Unavailable Unavailable Roger, M Luz Marina RPA Unavailable Unavailable Roger, M Luz Marina RPA Unavailable Unavailable Roger, M Luz Marina RPA Unavailable Unavailable Trickey, J Samina PA Unavailable Unavailable Trickey, J Samina PA Unavailable Unavailable Trickey, J Samina PA Unavailable Unavailable Trickey, J Samina PA Unavailable Unavailable Trickey, J Samina PA Unavailable Unavailable Trickey, J Samina PA Unavailable Unavailable Trickey, J Samina PA Unavailable Unavailable Trickey, J Samina PA Unavailable Unavailable Trickey, J Samina PA Unavailable Unavailable Trickey, J Samina PA Unavailable Unavailable Trickey, J Samina PA Unavailable Unavailable Trickey, J Samina PA Unavailable Unavailable Trickey, J Samina PA Unavailable Unavailable Trickey, J Samina PA Unavailable Unavailable Trickey, J Samina PA Unavailable Unavailable Trickey, J Samina PA Unavailable Unavailable Trickey, J Samina PA Unavailable Unavailable Trickey, J Samina PA Unavailable Unavailable Trickey, J Samina PA Unavailable Unavailable Trickey, J Samina PA Unavailable Unavailable Trickey, J Samina PA Unavailable Unavailable Trickey, J Samina PA Unavailable Unavailable Trickey, J Samina PA Unavailable Unavailable Trickey, J Samina PA Unavailable Unavailable Trickey, J Samina PA Unavailable Unavailable Trickey, J Samina PA Unavailable Unavailable Trickey, J Samina PA Unavailable Unavailable Trickey, J Samina PA Unavailable Unavailable Trickey, J Samina PA Unavailable Unavailable Trickey, J Samina PA Unavailable Unavailable Trickey, J Samina PA Unavailable Unavailable Trickey, J Samina PA Unavailable Unavailable Trickey, J Samina PA Unavailable Unavailable Trickey, J Samina PA Unavailable Unavailable Trickey, J Samina PA Unavailable Unavailable Trickey, J Samina PA Unavailable Unavailable Trickey, J Samina PA Unavailable Unavailable Trickey, J Samina PA Unavailable Unavailable Trickey, J Samina PA Unavailable Unavailable Trickey, J Samina PA Unavailable Unavailable Trickey, J Samina PA Unavailable Unavailable Trickey, J Samina PA Unavailable Unavailable Trickey, J Samina PA Unavailable Unavailable Trickey, J Samina PA Unavailable Unavailable Trickey, J Samina PA Unavailable Unavailable Trickey, J Samina PA Unavailable Unavailable Trickey, J Samina PA Unavailable Unavailable Trickey, J Samina PA Unavailable Unavailable Trickey, J Samina PA Unavailable Unavailable Trickey, J Samina PA Unavailable Unavailable Trickey, J Samina PA Unavailable Unavailable Trickey, J Samina PA Unavailable Unavailable Swatsworth, R Marianne PA Unavailable Unavailable Swatsworth, R Marianne PA Unavailable Unavailable Swatsworth, R Marianne PA Unavailable Unavailable Swatsworth, R Marianne PA Unavailable Unavailable Swatsworth, R Marianne PA Unavailable Unavailable Swatsworth, R Marianne PA Unavailable Unavailable Swatsworth, R Marianne PA Unavailable Unavailable Swatsworth, R Marianne PA Unavailable Unavailable Swatsworth, R Marianne PA Unavailable Unavailable Swatsworth, R Marianne PA Unavailable Unavailable Swatsworth, R Marianne PA Unavailable Unavailable Swatsworth, R Marianne PA Unavailable Unavailable Swatsworth, R Marianne PA Unavailable Unavailable Swatsworth, R Marianne PA Unavailable Unavailable Swatsworth, R Marianne PA Unavailable Unavailable Swatsworth, R Marianne PA Unavailable Unavailable Swatsworth, R Marianne PA Unavailable Unavailable Swatsworth, R Marianne PA Unavailable Unavailable Swatsworth, R Marianne PA Unavailable Unavailable Swatsworth, R Marianne PA Unavailable Unavailable Swatsworth, R Marianne PA Unavailable Unavailable Swatsworth, R Marianne PA Unavailable Unavailable Swatsworth, R Marianne PA Unavailable Unavailable Swatsworth, R Marianne PA Unavailable Unavailable Swatsworth, R Marianne PA Unavailable Unavailable Swatsworth, R Marianne PA Unavailable Unavailable Swatsworth, R Marianne PA Unavailable Unavailable Swatsworth, R Mairanne PA Unavailable Unavailable Swatsworth, R Marianne PA Unavailable Unavailable Swatsworth, R Marianne PA Unavailable Unavailable Swatsworth, R Marianne PA Unavailable Unavailable Swatsworth, R Marianne PA Unavailable Unavailable Swatsworth, R Marianne PA Unavailable Unavailable Swatsworth, R Marianne PA Unavailable Unavailable Swatsworth, R Marianne PA Unavailable Unavailable Swatsworth, R Marianne PA Unavailable Unavailable Swatsworth, R Marianne PA Unavailable Unavailable Swatsworth, R Marianne PA Unavailable Unavailable Swatsworth, R Marianne PA Unavailable Unavailable Swatsworth, R Marianne PA Unavailable Unavailable Swatsworth, R Marianne PA Unavailable Unavailable Swatsworth, R Marianne PA Unavailable Unavailable Swatsworth, R Marianne PA Unavailable Unavailable Swatsworth, R Marianne PA Unavailable Unavailable Swatsworth, R Marianne PA Unavailable Unavailable Swatsworth, R Marianne PA Unavailable Unavailable Swatsworth, R Marianne PA Unavailable Unavailable Swatsworth, R Marianne PA Unavailable Unavailable Michael Andrews MD Unavailable Michael Andrews MD Unavailable Michael Andrews MD Unavailable Michael Andrews MD Unavailable Michael Andrews MD Unavailable Michael Andrews MD Unavailable Michael Andrews MD Unavailable Michael Andrews MD Unavailable Michael Andrews MD Unavailable Michael Andrews MD Unavailable Michael Andrews MD Unavailable Michael Andrews MD Unavailable Michael Andrews MD Unavailable Michael Andrews MD Unavailable Michael Andrews MD Unavailable Michael Andrews MD Unavailable Michael Andrews MD Unavailable Michael Andrews MD Unavailable Michael Andrews MD Unavailable Michael Andrews MD Unavailable Michael Andrews MD Unavailable Michael Andrews MD Unavailable Michael Andrews MD Unavailable Michael Andrews MD Unavailable Michael Andrews MD Unavailable Michael Andrews MD Unavailable Michael Andrews MD Unavailable Michael Andrews MD Unavailable Michael Andrews MD Unavailable Michael Andrews MD Unavailable Rocio, Abdon Terry MD Unavailable Unavailable Rocio, Abdon Terry MD Unavailable Unavailable Rocio, Abdon Terry MD Unavailable Unavailable Rocio, Abdon Terry MD Unavailable Unavailable Rocio, Abdon Terry MD Unavailable Unavailable Rocio, Abdon Terry MD Unavailable Unavailable Rocio, Abdon Terry MD Unavailable Unavailable Rocio, Abdon Terry MD Unavailable Unavailable Rocio, Abdon Terry MD Unavailable Unavailable Rocio, Abdon Terry MD Unavailable Unavailable Rocio, Abdon Terry MD Unavailable Unavailable Rocio, Abdon Terry MD Unavailable Unavailable Rocio, Abdon Terry MD Unavailable Unavailable Rocio, Abdon Terry MD Unavailable Unavailable Rocio, Abdon Terry MD Unavailable Unavailable Rocio, Abdon Terry MD Unavailable Unavailable Rocio, Abdon Terry MD Unavailable Unavailable Rocio, Abdon Terry MD Unavailable Unavailable Rocio, Abdon Terry MD Unavailable Unavailable Rocio, Abdon Terry MD Unavailable Unavailable Rocio, Abdon Terry MD Unavailable Unavailable Rocio, Abdon Terry MD Unavailable Unavailable Rocio, Abdon Terry MD Unavailable Unavailable Rocio, Abdon Terry MD Unavailable Unavailable Rocio, Abdon Terry MD Unavailable Unavailable Rocio, Abdon Terry MD Unavailable Unavailable Rocio, Abdon Terry MD Unavailable Unavailable Rocio, Abdon Terry MD Unavailable Unavailable Rocio, Abdon Terry MD Unavailable Unavailable Rocio, Abdon Terry MD Unavailable Unavailable Rocio, Abdon Terry MD Unavailable Unavailable Rocio, Abdon Terry MD Unavailable Unavailable Rocio, Abdon Terry MD Unavailable Unavailable Rocio, Abdon Terry MD Unavailable Unavailable Rocio, Abdon Terry MD Unavailable Unavailable Rocio, Abdon Terry MD Unavailable Unavailable Rocio, Abdon Terry MD Unavailable Unavailable Rocio, Abdon Terry MD Unavailable Unavailable Rocio, Abdon Terry MD Unavailable Unavailable Rocio, Abdon Terry MD Unavailable Unavailable Rocio, Abdon Terry MD Unavailable Unavailable Rocio, Abdon Terry MD Unavailable Unavailable Rocio, Abdon Terry MD Unavailable Unavailable Rocio, Abdon Terry MD Unavailable Unavailable Roger, Ailyn Luz Marina ANP-BC Unavailable Unavailable Roger, Ailyn Luz Marina ANP-BC Unavailable Unavailable Roger, Ailyn Luz Marina ANP-BC Unavailable Unavailable Roger, Ailyn Luz Marina ANP-BC Unavailable Unavailable Roger, Ailyn Luz Marina ANP-BC Unavailable Unavailable Roger, Ailyn Luz Marina ANP-BC Unavailable Unavailable Roger, Ailyn Luz Marina ANP-BC Unavailable Unavailable Roger, Ailyn Luz Marina ANP-BC Unavailable Unavailable Roger, Ailyn Luz Marina ANP-BC Unavailable Unavailable Roger, Ailyn Luz Marina ANP-BC Unavailable Unavailable Roger, Ailyn Luz Marina ANP-BC Unavailable Unavailable Roger, Ailyn Luz Marina ANP-BC Unavailable Unavailable Roger, Ailyn Luz Marina ANP-BC Unavailable Unavailable Roger, Ailyn Luz Marina ANP-BC Unavailable Unavailable Roger, Ailyn Luz Marina ANP-BC Unavailable Unavailable Roger, Ailyn Luz Marina ANP-BC Unavailable Unavailable Roger, Ailyn Luz Marina ANP-BC Unavailable Unavailable Roger, Ailyn Luz Marina ANP-BC Unavailable Unavailable Roger, Ailyn Luz Marina ANP-BC Unavailable Unavailable Roger, Ailyn Luz Marina ANP-BC Unavailable Unavailable Roger, Ailyn Luz Marina ANP-BC Unavailable Unavailable Roger, Ailyn Luz Marina ANP-BC Unavailable Unavailable Roger, Ailyn Luz Marina ANP-BC Unavailable Unavailable Roger, Ailyn Luz Marina ANP-BC Unavailable Unavailable Roger, Ailyn Luz Marina ANP-BC Unavailable Unavailable Roger, Ailyn Luz Marina ANP-BC Unavailable Unavailable Roger, Ailyn Luz Marina ANP-BC Unavailable Unavailable Roger, Ailyn Luz Marina ANP-BC Unavailable Unavailable Roger, Ailyn Luz Marina ANP-BC Unavailable Unavailable Roger, Ailyn Luz Marina ANP-BC Unavailable Unavailable Roger, Ailyn Luz Marina ANP-BC Unavailable Unavailable Roger, Ailyn Luz Marina ANP-BC Unavailable Unavailable Roger, Ailyn Luz Marina ANP-BC Unavailable Unavailable Roger, Ailyn Luz Marina ANP-BC Unavailable Unavailable Roger, Ailyn Luz Marina ANP-BC Unavailable Unavailable Roger, Ailyn Luz Marina ANP-BC Unavailable Unavailable Roger, Ailyn Luz Marina ANP-BC Unavailable Unavailable Roger, Ailyn Luz Marina ANP-BC Unavailable Unavailable Roger, Ailyn Luz Marina ANP-BC Unavailable Unavailable Roger, Ailyn Luz Marina ANP-BC Unavailable Unavailable Roger, Ailyn Luz Marina ANP-BC Unavailable Unavailable Roger, Ailyn Luz Marina ANP-BC Unavailable Unavailable Roger, Ailyn Luz Marina ANP-BC Unavailable Unavailable Roger, Ailyn Luz Marina ANP-BC Unavailable Unavailable Roger, Ailyn Luz Marina ANP-BC Unavailable Unavailable Roger, Ailyn Luz Marina ANP-BC Unavailable Unavailable Roger, Ailyn Luz Marina ANP-BC Unavailable Unavailable Roger, Ailyn Luz Marina ANP-BC Unavailable Unavailable Roger, Ailyn Luz Marina ANP-BC Unavailable Unavailable Roger, Ailyn Luz Marina ANP-BC Unavailable Unavailable Roger, Ailyn Luz Marina ANP-BC Unavailable Unavailable Roger, Ailyn Luz Marina ANP-BC Unavailable Unavailable Roger, Ailyn Luz Marina ANP-BC Unavailable Unavailable Roger, Ailyn Luz Marina ANP-BC Unavailable Unavailable Roger, Ailyn Luz Marina ANP-BC Unavailable Unavailable Roger, Ailyn Luz Marina ANP-BC Unavailable Unavailable Roger, Ailyn Luz Marina ANP-BC Unavailable Unavailable Roger, Ailyn Luz Marina ANP-BC Unavailable Unavailable Roger, Ailyn Luz Marina ANP-BC Unavailable Unavailable Roger, Ailyn Luz Marina ANP-BC Unavailable Unavailable Roger, Ailyn Luz Marina ANP-BC Unavailable Unavailable Roger, Ailyn Luz Marina ANP-BC Unavailable Unavailable Roger, Ailyn Luz Marina ANP-BC Unavailable Unavailable Roger, Ailyn Luz Marina ANP-BC Unavailable Unavailable Roger, Ailyn Luz Marina ANP-BC Unavailable Unavailable Roger, Ailyn Luz Marina ANP-BC Unavailable Unavailable Roger, Ailyn Luz Marina ANP-BC Unavailable Unavailable Roger, Ailyn Luz Marina ANP-BC Unavailable Unavailable Roger, Ailyn Luz Marina ANP-BC Unavailable Unavailable Roger, Ailyn Luz Marina ANP-BC Unavailable Unavailable Roger, Ailyn Luz Marina ANP-BC Unavailable Unavailable Roger, Ailyn Luz Marina ANP-BC Unavailable Unavailable Roger, Ailyn Luz Marina ANP-BC Unavailable Unavailable Roger, Ailyn Luz Marina ANP-BC Unavailable Unavailable Roger, Ailyn Luz Marina ANP-BC Unavailable Unavailable Roger, Ailyn Luz Marina ANP-BC Unavailable Unavailable Roger, Ailyn Luz Marina ANP-BC Unavailable Unavailable Roger, Ailyn Luz Marina ANP-BC Unavailable Unavailable Roger, Ailyn Luz Marina ANP-BC Unavailable Unavailable Roger, Ailyn Luz Marina ANP-BC Unavailable Unavailable Roger, Ailyn Luz Marina ANP-BC Unavailable Unavailable Roger, Ailyn Luz Marina ANP-BC Unavailable Unavailable Roger, Ailyn Luz Marina ANP-BC Unavailable Unavailable Roger, Ailyn Luz Marina ANP-BC Unavailable Unavailable Roger, Ailyn Luz Marina ANP-BC Unavailable Unavailable Roger, Ailyn Luz Marina ANP-BC Unavailable Unavailable Roger, Ailyn Luz Marina ANP-BC Unavailable Unavailable Roger, Ailyn Luz Marina ANP-BC Unavailable Unavailable Roger, Ailyn Luz Marina ANP-BC Unavailable Unavailable Roger, Ailyn Luz Marina ANP-BC Unavailable Unavailable Roger, Ailyn Luz Marina ANP-BC Unavailable Unavailable Roger, Ailyn Luz Marina ANP-BC Unavailable Unavailable Roger, Ailyn Luz Marina ANP-BC Unavailable Unavailable Roger, Ailyn Luz Marina ANP-BC Unavailable Unavailable Roger, Ailyn Luz Marina ANP-BC Unavailable Unavailable Roger, Ailyn Luz Marina ANP-BC Unavailable Unavailable Roger, Ailyn Luz Marina ANP-BC Unavailable Unavailable Roger, Ailyn Luz Marina ANP-BC Unavailable Unavailable Roger, Ailyn Luz Marina ANP-BC Unavailable Unavailable Roger, Ailyn Luz Marina ANP-BC Unavailable Unavailable Roger, Ailyn Luz Marina ANP-BC Unavailable Unavailable Roger, Ailyn Luz Marina ANP-BC Unavailable Unavailable Roger, Ailyn Luz Marina ANP-BC Unavailable Unavailable Roger, Ailyn Luz Marina ANP-BC Unavailable Unavailable Roger, Ailyn Luz Marina ANP-BC Unavailable Unavailable Roger, Ailyn Luz Marina ANP-BC Unavailable Unavailable Roger, Ailyn Luz Marina ANP-BC Unavailable Unavailable Roger, Ailyn Luz Marina ANP-BC Unavailable Unavailable Roger, Ailyn Luz Marina ANP-BC Unavailable Unavailable Roger, Ailyn Luz Marina ANP-BC Unavailable Unavailable Roger, Ailyn Luz Marina ANP-BC Unavailable Unavailable Roger, Ailyn Luz Marina ANP-BC Unavailable Unavailable Roger, Ailyn Luz Marina ANP-BC Unavailable Unavailable Roger, Ailyn Luz Marina ANP-BC Unavailable Unavailable Roger, Ailyn Luz Marina ANP-BC Unavailable Unavailable Roger, Ailyn Luz Marina ANP-BC Unavailable Unavailable Roger, Ailyn Luz Marina ANP-BC Unavailable Unavailable Roger, Ailyn Luz Marina ANP-BC Unavailable Unavailable Roger, Ailyn Luz Marina ANP-BC Unavailable Unavailable Roger, Ailyn Luz Marina ANP-BC Unavailable Unavailable Rogre, Ailyn Luz Marina ANP-BC Unavailable Unavailable Roger, Ailyn Luz Marina ANP-BC Unavailable Unavailable Roger, Ailyn Luz Marina ANP-BC Unavailable Unavailable Roger, Ailyn Luz Marina ANP-BC Unavailable Unavailable Roger, Ailyn Luz Marina ANP-BC Unavailable Unavailable Roger, Ailyn Luz Marina ANP-BC Unavailable Unavailable Roger, Ailyn Luz Marina ANP-BC Unavailable Unavailable Roger, Ailyn Luz Marina ANP-BC Unavailable Unavailable Re-disclosure Warning The records that you are about to access may contain information from federally-assisted alcohol or drug abuse programs. If such information is present, then the following federally mandated warning applies: This information has been disclosed to you from records protected by federal confidentiality rules (42 CFR part 2). The federal rules prohibit you from making any further disclosure of this information unless further disclosure is expressly permitted by the written consent of the person to whom it pertains or as otherwise permitted by 42 CFR part 2. A general authorization for the release of medical or other information is NOT sufficient for this purpose. The Federal rules restrict any use of the information to criminally investigate or prosecute any alcohol or drug abuse patient.The records that you are about to access may contain highly sensitive health information, the redisclosure of which is protected by Article 27-F of the [facility] [place] Public Health law. If you continue you may have access to information: Regarding HIV / AIDS; Provided by facilities licensed or operated by the [facility] [place] Office of Mental Health; or Provided by the [facility] [place] Office for People With Developmental Disabilities. If such information is present, then the following [facility] [place] mandated warning applies: This information has been disclosed to you from confidential records which are protected by state law. State law prohibits you from making any further disclosure of this information without the specific written consent of the person to whom it pertains, or as otherwise permitted by law. Any unauthorized further disclosure in violation of state law may result in a fine or fdc sentence or both. A general authorization for the release of medical or other information is NOT sufficient authorization for further disc losure. Allergies and Adverse Reactions Type Description Substance Reaction Status Data Source(s ) BRANDNAME TYLENOL WITH CODEINE NO. 3 TYLENOL WITH CODEINE NO. 3 [facility] CLASS NSAID NSAID [facility] No Known Drug Allergies No Known Drug Allergies [facility] Drug allergy Ibuprofen Ibuprofen one kidney Active eCW1 ([facility]) Drug allergy Codeine Phosphate Drug allergy Nausea/Vomiting Active eCW1 ([facility]) NSAIDS NSAIDS NSAIDS one kidney Active eCW1 ([facility]) NSAIDS NSAIDS NSAIDS one kidney Active eCW1 ([facility]) NSAIDS NSAIDS NSAIDS one kidney Active eCW1 ([facility]) Family History Family Member Name Family Member Gender Family Member Status Date o f Status Description Data Source(s) Unknown Male Problem MEDENT ([facility]) Unknown Male Problem MEDENT ([facility] () Unknown Female Problem MEDENT ([facility] ) Encounters Encounter Providers Location Date Indications Data Source(s ) Outpatient Attender: Harrison Chan MDConsultant: Marianne KILLIAN 11/08/2020 07:00:00 AM EST - 11/08/2020 10:54:00 AM [facility] Patient discharged. Outpatient Attender: Harrison Chan MDConsultant: Marianne KILLIAN 11/04/2020 02:14:00 PM EST - 11/04/2020 02:14:00 PM [facility] Outpatient Attender: Luz Marina Duran ANP-BCConsultant: Marianne KILLIAN 11/02/2020 01:51:00 PM EST - 11/02/2020 01:51:00 PM [facility] Outpatient Attender: Luz Marina LISA-BCConsultant: Marianne KILLIAN 09/03/2020 09:02:00 AM EST - 09/03/2020 09:02:00 AM [facility] Outpatient Attender: Luz Marina LISA- Family Practice 12/2019 08:00:00 AM EST [facility] Outpatient Attender: Samina KILLIAN Main office - [facility] 08/18/2020 07:15:00 AM EST MEDENT ([facility]) Office Visit, Est Pt., Level [address] [place] [address] 06/29/2020 12:00:00 AM EDT eCW1 ([facility]) Outpatient Attender: Luz Marina LISA-BCConsultant: Marianne KILLIAN 06/04/2020 08:57:00 AM EDT - 06/04/2020 08:57:00 AM EDT [facility] Outpatient Attender: Samina KILLIAN Main office - [facility] 05/17/2020 08:30:00 AM EDT MEDENT ([facility], ) Outpatient Attender: Luz Marina [facility]an [facility] 03/09/2020 07:38:46 PM EDT [facility] [address] [place], [place] [phone] 03/08/2020 12:00:00 AM EDT eCW1 ([facility]) Outpatient Attender: Luz Marina Duran [facility] 02/28/2020 12:11:42 AM EDT [facility] [address] [place] [address] 02/27/2020 12:00:00 AM EDT eCW1 ([facility]) Recurring Patient Referrer: Abraham Andrews MD 02/09/2020 10: 51:00 AM EDT [facility] [address] [place], [place] [phone] 02/04/2020 12:00:00 AM EDT eCW1 ([facility]) [facility] [address] [place], [place] [phone] 02/02/2020 12:00:00 AM EDT eCW1 ([facility]) [facility] [address] [place], [place] [phone] 01/06/2020 12:00:00 AM EDT eCW1 ([facility]) [facility] D[facility] [address] [place] [address] 01/05/2020 12:00:00 AM EDT eCW1 ([facility]) [facility] [address] [place] [address] 01/05/2020 12:00:00 AM EDT eCW1 ([facility]) [facility] 12/03/2019 10:02:00 AM EST - 12/03/2019 10:02:00 AM EST [facility] Outpatient Attender: Luz Marina LISA- Family Practice 12/2019 09:00:00 AM EST MEDENT ([facility]) Outpatient Attender: Samina KILLIAN [facility] 11/17/2019 09:00:00 AM EST MEDENT ([facility]) [facility] D[facility] [address] [place] [phone] 11/17/2019 12:00:00 AM EST [facility] D[facility] [address] [place] [phone] 11/07/2019 12:00:00 AM EST eCW1 ([facility]) Medications Medication Brand Name Start Date Product Form Dose Route Admi nistrative Instructions Pharmacy Instructions Status Indications Reaction Description Data Source(s) Ibuprofen 800 MG Oral Tablet Ibuprofen 11/05/2020 12:00:00 AM EST ORAL active MEDENT ([facility]) 800 mg 11/05/2020 12:00:00 AM EST tablet 30 TAKE ONE TABLET BY MOUTH EVERY 8 HOURS NEEDED FOR PAIN TAKE ONE TABLET BY MOUTH EVERY 8 HOURS A S NEEDED FOR PAIN SOLD: 11/05/2020 [facility] 200 mg 11/03/2020 12:00:00 AM EST tablet 60 TAKE ONE TABLET BY MOUTH TWICE A DAY, MAXIMUM DAILY DOSE = TWO TABLETS TAKE ONE TABLET BY MOUTH TWICE A DAY, MAXIMUM DAILY DOSE = TWO TABLETS SOLD: 11/03/2020 [facility] 0.05 % 10/12/2020 12:00:00 AM EST dropperette 180 INSTILL ONE DROP INTO EACH EYE TWO TIMES A DAY DIRECTED INSTILL ONE DROP INTO EACH EYE TWO TIMES A DAY DIRECTED SOLD: 10/16/2020 [facility] 200 mg 10/03/2020 12:00:00 AM EST tablet 60 TAKE ONE TABLET BY MOUTH TWO TIMES A DAY MAXIMUM DAILY DOSE = 2 TAKE ONE TABLET BY MOUTH TWO TIMES A DAY MAXIMUM DAILY DOSE = 2 SOLD: 10/05/2020 [facility] 100 mg 09/03/2020 12:00:00 AM EST capsule 14 TAKE ONE CAPSULE BY MOUTH TWICE A DAY TAKE ONE CAPSULE BY MOUTH TWICE A DAY SOLD: 09/03/2020 [facility] NITROFURANTOIN, MACROCRYSTALS 25 MG / Ni trofurantoin, Monohydrate 75 MG Oral Capsule Nitrofurantoin Monohyd Macro 09/03/2020 12:00:00 AM EST ORAL completed [facility] ([facility]) 200 mg 08/20/2020 12:00:00 AM EST tablet 60 TAKE ONE TABLET BY MOUTH TWICE A DAY MAXIMUM DAILY DOSE = 2 TAKE ONE TABLET BY MOUTH TWICE A DAY MAX IMUM DAILY DOSE = 2 SOLD: 08/24/2020 [facility] rizatriptan 10 MG Disintegrating Oral Tablet RIZATRIPTAN DONN ZOATE 08/18/2020 12:00:00 AM EST tablet,disintegrating 9 TAKE ONE T ABLET BY MOUTH AT ONSET OF HEADACHE, MAY REPEAT ONCE IN 2 HOURS NEEDED, MAXIMUM DAILY DOSE = TWO TABLETS TAKE ONE TABLET BY MOUTH AT ONSET OF HEA DACHE, MAY REPEAT ONCE IN 2 HOURS NEEDED, MAXIMUM DAILY DOSE = TWO TABLETS SOLD: 08/24/2020 [facility] 1 gram 07/20/2020 12:00:00 AM EDT capsule 90 TAKE 1 CAPSULE BY MOUTH ONCE DAILY TAKE 1 CAPSULE BY MOUTH ONCE DAILY SOLD: 07/26/2020 [facility] 200 mg 07/18/2020 12:00:00 AM EDT tablet 60 TAKE 1 TABLET BY MOUTH TWO TIMES A DAY MAXIMUM DAILY DOSE = 2 TABLETS TAKE 1 TABLET BY MOUTH TWO TIMES A DAY MAXIMUM DAILY DOSE = 2 TABLETS SOLD: 07/20/2020 [facility] 0.1 % 07/01/2020 12:00:00 AM EDT ointment 160 APPLY TO BACK, CHEST, ABDOMEN, ARMS, AND LEGS TWO TIMES A DAY APPLY TO BACK, CHEST, ABDOMEN, ARMS, AND LEGS TWO TIMES A DAY SOLD: 07/20/2020 [facility] 100 mg 07/01/2020 12:00:00 AM EDT capsule 6 TAKE TWO CAPSULES BY MOUTH AFTER A MEAL ONCE MONTHLY TAKE TWO CAPSULES BY MOUTH AFTER A MEAL ONCE MONTHLY S OLD: 07/01/2020 [facility] 25 mg 06/21/2020 12:00:00 AM EDT tablet 90 TAKE ONE TABLET BY MOUTH EVERY DAY TAKE ONE TABLET BY MOUTH EVERY DAY SOLD: 06/25/2020 [facility] 25 mg 06/21/2020 12:00:00 AM EDT tablet 90 TAKE ONE TABLET BY MOUTH EVERY DAY TAKE ONE TABLET BY MOUTH EVERY DAY SOLD: 10/05/2020 [facility] 200 mg 06/13/2020 12:00:00 AM EDT tablet 60 TAKE ONE TABLET BY MOUTH TWICE A DAY , MAXIMUM DAILY DOSE = 2 TABLETS TAKE ONE TABLET BY MOUTH TWICE A DAY , MAXIMUM DAILY DOSE = 2 TABLETS SOLD: 06/19/2020 [facility] 200 mg 05/14/2020 12:00:00 AM EDT tablet 60 TAKE ONE TABLET BY MOUTH TWICE A DAY MAXIMUM DAILY DOSE = 2 TABLETS TAKE ONE TABLET BY MOUTH TWICE A DAY MAX IMUM DAILY DOSE = 2 TABLETS SOLD: 05/15/2020 [facility] 200 mg 04/12/2020 12:00:00 AM EDT tablet 60 TAKE ONE TABLET BY MOUTH TWICE A DAY, MAXIMUM DAILY DOSE = TWO TABLETS TAKE ONE TABLET BY MOUTH TWICE A DAY, MAXIMUM DAILY DOSE = TWO TABLETS SOLD: 04/16/2020 [facility] 0.005 % 03/30/2020 12:00:00 AM EDT ointment 60 APPLY TO AFFECTED AREA(S) WITH RASH TWO TIMES A DAY APPLY TO AFFECTED AREA(S) WITH RASH TWO TIMES A DAY SOLD: 04/02/2020 [facility] 0.005 % 03/30/2020 12:00:00 AM EDT ointment 60 APPLY TO AFFECTED AREA(S) WITH RASH TWO TIMES A DAY APPLY TO AFFECTED AREA(S) WITH RASH TWO TIMES A DAY SOLD: 06/11/2020 [facility] 200 mg 03/09/2020 12:00:00 AM EDT tablet 60 TAKE ONE TABLET BY MOUTH TWICE A DAY , MAXIMUM DAILY DOSE = 2 TABLETS TAKE ONE TABLET BY MOUTH TWICE A DAY , MAXIMUM DAILY DOSE = 2 TABLETS SOLD: 03/14/2020 [facility] 200 mg 02/05/2020 12:00:00 AM EDT tablet 60 TAKE ONE TABLET BY MOUTH TWICE A DAY, MAXIMUM DAILY DOSE = TWO TABLETS TAKE ONE TABLET BY MOUTH TWICE A DAY, MAXIMUM DAILY DOSE = TWO TABLETS SOLD: 02/12/2020 [facility] 40 mg 01/30/2020 12:00:00 AM EDT tablet 90 TAKE ONE TABLET BY MOUTH EVERY DAY AT BEDTIME TAKE ONE TABLET BY MOUTH EVERY DAY AT BEDTIME SOLD: 08/04/2020 [facility] 40 mg 01/30/2020 12:00:00 AM EDT tablet 90 TAKE ONE TABLET BY MOUTH EVERY DAY AT BEDTIME TAKE ONE TABLET BY MOUTH EVERY DAY AT BEDTIME SOLD: 05/03/2020 [facility] 40 mg 01/30/2020 12:00:00 AM EDT tablet 90 TAKE ONE TABLET BY MOUTH EVERY DAY AT BEDTIME TAKE ONE TABLET BY MOUTH EVERY DAY AT BEDTIME SOLD: 02/02/2020 [facility] 40 mg 01/30/2020 12:00:00 AM EDT tablet 90 TAKE ONE TABLET BY MOUTH EVERY DAY AT BEDTIME TAKE ONE TABLET BY MOUTH EVERY DAY AT BEDTIME SOLD: 11/03/2020 [facility] 100 mg 01/13/2020 12:00:00 AM EDT capsule 16 TAKE FOUR CAPSULES BY MOUTH ONCE WEEKLY AFTER A MEAL FOR 4 WEEKS TAKE FOUR CAPSULES BY MOUTH ONCE WEEKLY AFTER A MEAL FOR 4 WEEKS SOLD: 01/13/2020 [facility] 0.005 % 01/08/2020 12:00:00 AM EDT ointment 60 APPLY TO AFFECTED AREA(S) WITH RASH TWO TIMES A DAY APPLY TO AFFECTED AREA(S) WITH RASH TWO TIMES A DAY SOLD: 01/24/2020 [facility] 0.005 % 01/08/2020 12:00:00 AM EDT ointment 60 APPLY TO AFFECTED AREA(S) WITH RASH TWO TIMES A DAY APPLY TO AFFECTED AREA(S) WITH RASH TWO TIMES A DAY SOLD: 01/26/2020 [facility] 0.005 % 01/08/2020 12:00:00 AM EDT ointment 60 APPLY TO AFFECTED AREA(S) WITH RASH TWO TIMES A DAY APPLY TO AFFECTED AREA(S) WITH RASH TWO TIMES A DAY SOLD: 02/18/2020 [facility] 200 mg 01/06/2020 12:00:00 AM EDT tablet 60 TAKE ONE TABLET BY MOUTH TWICE A DAY, MAXIMUM DAILY DOSE = TWO TABLETS TAKE ONE TABLET BY MOUTH TWICE A DAY, MAXIMUM DAILY DOSE = TWO TABLETS SOLD: 01/07/2020 [facility] Itraconazole 100 MG Oral Capsule Itraconazole 100 MG 01/05/2020 12:00:00 AM EDT active 4 capsule after a meal eCW1 ([facility]) calcipotriene 0.83059 MG/MG Topical Ointment Calcipotr iene 0.005 % Calcipotriene 0.005 % 01/05/2020 12:00:00 AM EDT active 1 application eCW1 ([facility]) 200 mg 12/06/2019 12:00:00 AM EST tablet 60 TAKE ONE TABLET BY MOUTH TWICE A DAY MAXIMUM DAILY DOSE = TWO TABLETS TAKE ONE TABLET BY MOUTH TWICE A DAY MAXIMUM DAILY DOSE = TWO TABLETS SOLD: 12/08/2019 [facility] 20 mg 12/03/2019 12:00:00 AM EST capsule,delayed release (DR/EC) 90 TAKE ONE CAPSULE BY MOUTH EVERY DAY TAKE ONE CAPSULE BY MOUTH EVERY DAY SOLD: 12/05/2019 [facility] 25 mg 11/17/2019 12:00:00 AM EST tablet 90 TAKE ONE TABLET BY MOUTH EVERY DAY TAKE ONE TABLET BY MOUTH EVERY DAY SOLD: 11/17/2019 [facility] 25 mg 11/17/2019 12:00:00 AM EST tablet 90 TAKE ONE TABLET BY MOUTH EVERY DAY TAKE ONE TABLET BY MOUTH EVERY DAY SOLD: 03/27/2020 [facility] 10 mg 11/15/2019 12:00:00 AM EST tablet 180 TAKE ONE TABLET BY MOUTH TWICE A DAY TAKE ONE TABLET BY MOUTH TWICE A DAY SOLD: 11/17/2019 [facility] 10 mg 11/15/2019 12:00:00 AM EST tablet 180 TAKE ONE TABLET BY MOUTH TWICE A DAY TAKE ONE TABLET BY MOUTH TWICE A DAY SOLD: 08/16/2020 [facility] 10 mg 11/15/2019 12:00:00 AM EST tablet 180 TAKE ONE TABLET BY MOUTH TWICE A DAY TAKE ONE TABLET BY MOUTH TWICE A DAY SOLD: 02/13/2020 [facility] 10 mg 11/15/2019 12:00:00 AM EST tablet 180 TAKE ONE TABLET BY MOUTH TWICE A DAY TAKE ONE TABLET BY MOUTH TWICE A DAY SOLD: 05/17/2020 [facility] 0.1 % 11/08/2019 12:00:00 AM EST ointment 160 APPLY TO BACK , CHEST , ABDOMEN , ARMS AND LEGS TWO TIMES A DAY APPLY TO BACK , CHEST , ABDOMEN , ARMS AND LEGS TWO TIMES A DAY SOLD: 01/07/2020 [facility] 0.1 % 11/08/2019 12:00:00 AM EST ointment 160 APPLY TO BACK , CHEST , ABDOMEN , ARMS AND LEGS TWO TIMES A DAY APPLY TO BACK , CHEST , ABDOMEN , ARMS AND LEGS TWO TIMES A DAY SOLD: 03/27/2020 [facility] 0.1 % 11/08/2019 12:00:00 AM EST ointment 160 APPLY TO BACK , CHEST , ABDOMEN , ARMS AND LEGS TWO TIMES A DAY APPLY TO BACK , CHEST , ABDOMEN , ARMS AND LEGS TWO TIMES A DAY SOLD: 11/08/2019 [facility] 1 gram 10/23/2019 12:00:00 AM EST capsule 90 TAKE 1 CAPSULE BY MOUTH ONCE DAILY TAKE 1 CAPSULE BY MOUTH ONCE DAILY SOLD: 04/19/2020 [facility] 1 gram 10/23/2019 12:00:00 AM EST capsule 90 TAKE 1 CAPSULE BY MOUTH ONCE DAILY TAKE 1 CAPSULE BY MOUTH ONCE DAILY SOLD: 01/19/2020 [facility] 1 gram 10/23/2019 12:00:00 AM EST capsule 90 TAKE 1 CAPSULE BY MOUTH ONCE DAILY TAKE 1 CAPSULE BY MOUTH ONCE DAILY SOLD: 10/26/2019 [facility] [place]-3 Acid Ethyl Esters (FCI) 1000 MG Oral Capsule [place]-3 -Acid Ethyl Esters 10/23/2019 12:00:00 AM EST ORAL active [facility] ([facility]) 200 mg 10/17/2019 12:00:00 AM EST tablet 60 TAKE ONE TABLET BY MOUTH TWO TIMES A DAY MAXIMUM DAILY DOSE = 2 TABLETS TAKE ONE TABLET BY MOUTH TWO TIMES A DAY MAXIMUM DAILY DOSE = 2 TABLETS SOLD: 10/20/2019 [facility] 10 mg 10/10/2019 12:00:00 AM EST tablet,disintegrating 9 DISSOLVE 1 TABLET BY MOUTH AT ONSET OF HEADACHE , MAY REPEAT ONCE IN 2 HOURS NEEDED , MAXIMUM DAILY DOSE = 2 TABLETS DISSOLVE 1 TABLET BY MOUTH AT ONSET OF H EADACHE , MAY REPEAT ONCE IN 2 HOURS NEEDED , MAXIMUM DAILY DOSE = 2 TABLETS SOLD: 03/27/2020 [facility] 10 mg 10/10/2019 12:00:00 AM EST tablet,disintegrating 9 DISSOLVE 1 TABLET BY MOUTH AT ONSET OF HEADACHE , MAY REPEAT ONCE IN 2 HOURS NEEDED , MAXIMUM DAILY DOSE = 2 TABLETS DISSOLVE 1 TABLET BY MOUTH AT ONSET OF H EADACHE , MAY REPEAT ONCE IN 2 HOURS NEEDED , MAXIMUM DAILY DOSE = 2 TABLETS SOLD: 10/13/2019 [facility] 10 mg 10/10/2019 12:00:00 AM EST tablet,disintegrating 9 DISSOLVE 1 TABLET BY MOUTH AT ONSET OF HEADACHE , MAY REPEAT ONCE IN 2 HOURS NEEDED , MAXIMUM DAILY DOSE = 2 TABLETS DISSOLVE 1 TABLET BY MOUTH AT ONSET OF H EADACHE , MAY REPEAT ONCE IN 2 HOURS NEEDED , MAXIMUM DAILY DOSE = 2 TABLETS SOLD: 02/02/2020 [facility] rizatriptan 10 MG Disintegrating Oral Tablet Rizatriptan Donn zoate 10/09/2019 12:00:00 AM EST active M JEAN CLAUDE ([facility], ) 200 mg 09/16/2019 12:00:00 AM EST tablet 60 TAKE ONE TABLET BY MOUTH TWICE A DAY , MAXIMUM DAILY DOSE = 2 TABLETS TAKE ONE TABLET BY MOUTH TWICE A DAY , MAXIMUM DAILY DOSE = 2 TABLETS SOLD: 09/17/2019 [facility] 0.05 % 07/29/2019 12:00:00 AM EDT dropperette 180 INSTILL 1 DROP IN EACH EYE TWO TIMES A DAY INSTILL 1 DROP IN EACH EYE TWO TIMES A DAY SOLD: 05/27/2020 [facility] Pravastatin Sodium 40 MG Oral Tablet PRAVASTATIN SODIUM 01/2019 12:00:00 AM EDT tablet 90 TAKE ONE TABLET BY MOUTH AT BEDTIME TAKE ONE TABLET BY MOUTH AT BEDTIME SOLD: 11/02/2019 [facility] Insurance Providers Payer name Policy type / Coverage type Policy ID Covered democrat ID Covered democrat's relationship to [place] Policy [place] Plan Information MEDICARE [id number] SP [id number] BCBS EMPIRE CHAZ DIV UNAVAILABLE UNAVAILABLE [employer] [id number] SP [id number] MEDICARE PART A -O/P [id number] 18 [id number] [facility] MEDICARE PART A [facility] [id number] 18 [id number] [facility] E[facility]IRE PLAN [id number] 18 [id number] [facility] [id number] [facility] [id number] 20 [id number] [place] Plan P [id number] S [id number] BCBS EMPIRE CHAZ DIV [id number] SP [id number] [facility] [id number] SP [id number] MEDICARE [id number] SP [id number] BCBS EMPIRE CHAZ DIV [id number] SP [id number] [facility] [id number] SP [id number] BCBS EMPIRE CHAZ DIV [id number] SP [id number] MEDICARE [id number] SP [id number] A [facility] [place] Plan Medigap Part B [id number] Self [id number] [facility] Medicare Part A [place] Primary [id number] Self [id number] United Healthcare Commercial [id number] Self [id number] Medicare Part B Medicare Primary [id number] Self [id number] [facility] [place] Plan Medigap Part B [id number] Self [id number] [place] Primary [id number] Self [id number] MEDICARE PART A [facility] [id number] 18 [id number] [place] Plan Medigap Part B [id number] Self [id number] Medicare - NGS Medicare Primary [id number] Self [id number] United Healthcare Commercial [id number] Self [id number] Medicare Part B Medicare Primary [id number] Self [id number] United Healthcare Commercial [id number] Self [id number] Medicare Part B Medicare Primary [id number] Self [id number] United Healthcare Commercial [id number] Self [id number] Medicare Part B Medicare Primary [id number] Self [id number] United Healthcare Commercial [id number] Self [id number] Medicare Part B Medicare Primary [id number] Self [id number] United Healthcare Commercial [id number] Self [id number] Medicare Part B Medicare Primary [id number] Self [id number] MEDICARE [id number] SP [id number] United Healthcare Commercial [id number] Self [id number] Medicare Part B Medicare Primary [id number] Self [id number] BCBS EMPIRE CHAZ DIV [id number] SP [id number] Medicare Part B Medicare Primary Self United Healthcare Commercial Self [place] Plan F [id number] [id number] [facility] Insurance Workers 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 Self [place] [facility] Health Maintenance Organization (HMO) Self [place] ([place], [place]) Medicare Primary Self EMPIRE ([facility]) O [id number] S [id number] STATE INS FUND W [id number] Empl [id number] [facility] [id number] 18 [id number] EMPIRE PLAN [facility] U [id number] Self [id number] STATE INS FUND [id number] Empl [id number] STATE INSURANCE FUND [id number] SP [id number] [facility] P [id number] S [id number] [place] P [id number] S [id number] STATE INSURANCE FUND [id number] SP [id number] [facility] [id number] SP [id number] P UNAVAILABLE UNAVAILA BLE [facility] S [id number] S [id number] STATE INSURANCE FUND P [id number] S [id number] STATE INSURANCE FUND [id number] SP [id number] BCBS EMPIRE CHAZ DIV [id number] SP [id number] Problems, Conditions, and Diagnoses Code Display Name Description Problem Type Effective Dates Data Source(s) 757636147 Inguinal hernia Inguinal hernia Problem 11/04/2020 12:0 0:00 AM EST [facility]) D22.62 [id number] Melanocytic nevi of left upper l imb, including shoulder Problem 06/29/2020 12:00:00 AM EDT eCW1 ([facility]) D22.71 122848110 Melanocytic nevi of right lower limb, inc luding hip Problem 06/29/2020 12:00:00 AM EDT eCW1 ([facility]) D22.72 [id number] Melanocytic nevi of left lower l imb, including hip Problem 06/29/2020 12:00:00 AM EDT eCW1 ([facility]) L81.4 808361351 Lentigines Problem 06/29/2020 12:00:00 AM ED T eCW1 ([facility]) D18.01 3462840 Olson angioma Problem 06/29/2020 12:00:00 A M EDT eCW1 ([facility]) D22.5 223784597 Melanocytic nevi of trunk Problem 06/29/2020 12:00:00 AM EDT eCW1 ([facility]) Z85.828 254395966 History of nonmelanoma skin cancer Proble m 06/29/2020 12:00:00 AM EDT eCW1 ([facility]) D22.61 438897453 Melanocytic nevi of right upper limb, including shoulder Problem 06/29/2020 12:00:00 AM EDT eCW1 ([facility]) D22.30 916680513 Melanocytic nevi of face Problem 06/29/2020 12:00:00 AM EDT eCW1 ([facility]) L57.0 920579057 AK (actinic keratosis) Problem 06/29/2020 12 :00:00 AM EDT eCW1 ([facility]) L82.1 055874040 SK (seborrheic keratosis) Problem 06/29/2020 12:00:00 AM EDT eCW1 ([facility]) D22.4 76436745 Multiple benign nevi of neck Problem 020 12:00:00 AM EDT eCW1 ([facility]) 382365436 Insomnia Insomnia Problem 06/04/2020 12:00:00 AM ED T [facility] ([facility]) 40116288 Vitamin D deficiency Vitamin D deficiency Problem 06/04/2020 12:00:00 AM EDT [facility] ([facility]) 66596743 Neoplasm of uncertain behavior of skin N eoplasm of uncertain behavior of skin Problem 06/04/2020 12:00:00 AM EDT [facility] ([facility]) 26315941 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 Problem 06/04/2020 12:00:00 AM EDT [facility] ([facility]) 027698331 Taking medication Taking medication Problem 06/04 12:00:00 AM EDT [facility] ([facility]) 639405221 Chronic pain syndrome Chronic pain syndrome Problem 06/04/2020 12:00:00 AM EDT [facility] ([facility]) 509904528 Gastroesophageal reflux disease Gastroesophageal reflux disease Problem 06/04/2020 12:00:00 AM EDT [facility] ([facility]) 81084751 Migraine Migraine Problem 06/04/2020 12:00:00 AM ED T [facility] ([facility]) 45189132 Neck pain Neck pain Problem 06/04/2020 12:00:00 AM ED T [facility] ([facility]) 11653024 Obstructive sleep apnea syndrome Obstructive sle ep apnea syndrome Problem 06/04/2020 12:00:00 AM EDT [facility] ([facility]) 999864147 Pure hypercholesterolemia Pure hypercholesterolemia Pr oblem 06/04/2020 12:00:00 AM EDT [facility] ([facility]) L11.1 25286341 Transient acantholytic dermatosis [[place] ] Problem 02/02/2020 12:00:00 AM EDT eCW1 ([facility]) L11.1 09543994 Transient acantholytic dermatosis [[place] ] Problem 02/02/2020 12:00:00 AM EDT eCW1 ([facility]) K4090 Unilateral inguinal hernia, without obstruction or gangrene, not specified as recurrent Unilateral inguinal hernia, without obst ruction or gangrene, not specified as recurrent Diagnosis 11/08/2020 07:00:00 AM [facility] G4733 Obstructive sleep apnea (adult) (pediatr ic) Obstructive sleep apnea (adult) (pediatric) Diagnosis 11/02/2020 01:51:00 PM [facility] R7303 Prediabetes Prediabetes Diagnosis 11/02/2020 01:51:00 PM [facility] I10 Essential (primary) hypertension Essential (primary) h ypertension Diagnosis 11/02/2020 01:51:00 PM [facility] E7800 Pure hypercholesterolemia, unspecified P ure hypercholesterolemia, unspecified Diagnosis 11/02/2020 01:51:00 PM [facility] K219 Gastro-esophageal reflux disease without esophagitis Gastro-esophageal reflux disease without esophagitis Diagnosis 11/02/2020 01:51:00 PM [facility] J62393 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 Diagnosis 09/03/2020 09:02:00 AM [facility] G894 Chronic pain syndrome Chronic pain syndrome Diagnosis 09/03/2020 09:02:00 AM [facility] E559 Vitamin D deficiency, unspecified Vitamin D defi ciency, unspecified Diagnosis 09/03/2020 09:02:00 AM [facility] J79517 Migraine, unspecified, not intractable, without status migrainosus Migraine, unspecified, not intractable, without status migrainosus Diagnosis 09/03/2020 09:02:00 AM [facility] M542 Cervicalgia Cervicalgia Diagnosis 09/03/2020 09:02:00 AM [facility] R809 Proteinuria, unspecified Proteinuria, unspecified Diag nosis 09/03/2020 09:02:00 AM [facility] R319 Hematuria, unspecified Hematuria, unspecified Diagnosi s 09/03/2020 09:02:00 AM [facility] R300 Dysuria Dysuria Diagnosis 09/03/2020 09:02:00 AM [facility] Surgeries/Procedures Procedure Description Date Indications Data Source(s) Brief Emotional/Behav Assessment W/ Scoring Doc Per Standard Inst 06/04/2020 12:00:00 AM EDT [facility] ([facility]) Admin Patient Focused Health Risk Assessment Instrument 06/04/2020 12:00:00 AM EDT [facility] ([facility]) TANGNTL BX SKIN SINGLE LES 02/04/2020 12:00:00 AM EDT eCW1 ([facility]) TeleMedicine Est. Pt. Level 3 02/02/2020 12:00:00 AM E DT eCW1 ([facility]) TeleMedicine Est. Pt. Level 4 01/05/2020 12:00:00 AM E DT eCW1 ([facility]) Results ID Date Data Source [id number] 11/04/2020 03:02:00 PM EST [facility] Name Value Range Interpretation Code Description Data Zaynab rce(s) Supporting Document(s) SARS coronavirus 2 RNA Not Detected [facility] This lab was ordered by [facility]el loco and reported by [facility]. ID Date Data Source [id number] 11/07/2020 06:50:00 AM EST [facility] Name Value Range Interpretation Code Description Data Zaynab rce(s) Supporting Document(s) SARS-CoV-2, VIKAS Not Detected Not Detected [facility] This nucleic acid amplification test was developed and its performancecharacteristics determined by [facility]. Nucleic acidamplification tests include RT-PCR and TMA. This test has not beenFDA cleared or approved. This test has been authorized by FDA underan Emergency Use Authorization (EUA). This test is only authorizedfor the duration of time the declaration that circumstances existjustifying the authorization of the emergency use of in vitrodiagnostic tests for detection of SARS-CoV-2 virus and/or diagnosisof COVID-19 infection under section 564(b)(1) of the Act, 21 U.S.C.360bbb-3(b) (1), unless the authorization is terminated or revokedsooner.When diagnostic testing is negative, the possibility of a falsenegative result should be considered in the context of a patient'srecent exposures and the presence of clinical signs and symptomsconsistent with COVID- 19. An individual without symptoms of COVID-19and who is not shedding SARS-CoV-2 virus would expect to have anegative (not detected) result in this assay. ID Date Data Source [id number] 10/11/2020 12:00:00 AM EST [facility] Name Value Range Interpretation Code Description Data Zaynab rce(s) Supporting Document(s) SARS-CoV2 Rapid Antigen Negative [facility] This lab was ordered by [facility] and reported by [facility]. ID Date Data Source [id number] 09/03/2020 09:30:00 AM EST [facility] ([facility]) Name Value Range Interpretation Code Description Data Zaynab rce(s) Supporting Document(s) Culture Urine Laboratory test result [facility] ([facility]) {SPECIMEN TYPE: RANDOM ID Date Data Source [id number] 09/03/2020 09:29:00 AM EST [facility] ([facility]) Name Value Range Interpretation Code Description Data Zaynab rce(s) Supporting Document(s) Color of Urine Laboratory test result [facility] ([facility]) Spec [place] 1.015 [facility] ([facility]) pH of Urine by Test strip 6 MED[facility] NT ([facility]) Appearance of Urine Laboratory test result [facility] ([facility]) Leukocytes Laboratory test result [facility] ([facility]) Nitrate [Presence] in Urine Laboratory test result [facility] ([facility]) Protein [Presence] in Urine by Test strip Laboratory test result [facility] ([facility]) Ketones [Presence] in Urine by Test strip Laboratory test result [facility] ([facility]) Inhouse Glucose Laboratory test result [facility] ([facility]) Urobilinogen Laboratory test result [facility] ([facility]) Blood type and Indirect antibody screen panel - Blood Laboratory test result [facility] ([facility]) Bilirubin.total [Presence] in Urine by Test strip Laboratory test res ult [facility] ([facility]) ID Date Data Source [id number] 09/07/2020 08:35:00 PM EST [facility] Name Value Range Interpretation Code Description Data Zaynab rce(s) Supporting Document(s) CULTURE URINE [facility] _CULTURE URINE_$$[id number]$$[id number]$$[id number]$$[id number]$$[id number]$$[id number]$$[id number]$$[id number]$$[id number]$$ [id number]$$[id number]$$[id number]$$[id number]$$[id number]$$155872$$[id number]$$634400$$[id number]$$393164$$ [id number]$$684798$$649895$$[id number]$$[id number]$$146046$$[id number]$$[id number] -- Continued on next page --Patient: MARLA Odom Order: [id number] Page 2Culture: CULTURE URINE Status: Final ==== -- Continued on next page --Patient: MARLA Odom Order: [id number] Page 2Culture: CULTURE URINE Status: Prelim =====$$[id number]$$[id number] DATE/TIME: 09/07/2020 15:06Culture: CULTURE URINE Status: FinalUrine Culture,Comprehensive: P1No growth in 36 - 48 hours. Previous result entered on 09/06/2020 07:11 ET No growth after 18-24 hours.P1 Test performed by: [facility] David SÁNCHEZ #: [id number] [address] [id number] [facility] [id number] Director : Dilan Rodriguez MD NPI #:Lab Lo toby : 09/06/[id number].SENT REF 09/07/[id number].XMT.SENT REF Procedure Social History Code Duration Value Status Description Data Source(s ) Smoking 06/29/2020 12:00:00 AM EDT Never Smoker completed Never S adal eCW1 ([facility]) Vital Signs ID Date Data Source UNK Name Value Range Interpretation Code Description Data Source(s) Oxygen saturation in Arterial blood by Pulse oximetry 98 % 98 % [facility] Respiratory rate 18 /min 18 /min [facility] ( [facility]) Body temperature 98.2 [degF] 98.2 [degF] [facility] ([facility]) Heart rate 70 /min 70 /min [facility] ([facility]) Diastolic blood pressure 78 mm[Hg] 78 mm[Hg[facility] Systolic blood pressure 123 mm[Hg] 123 mm[Hg] [facility] ([facility]) Body surface area Derived from formula 1.96 m2 1.96 m2 [facility] ([facility]) Body mass index (BMI) [Ratio] 24.8 kg/m2 24.8 k g/m2 [facility] ([facility]) Body height 70 [in_i] 70 [in_i] [facility] ([facility]) 5'10" Body weight 78.473 kg 78.473 kg [facility] ([facility]) Body weight 173.00 [lb_av] 173.00 [lb_av] [facility] ([facility]) Body surface area Derived from formula 1.96 m2 1.96 m2 [facility] ([facility]) Body mass index (BMI) [Ratio] 24.8 kg/m2 24.8 k g/m2 [facility] ([facility]) Body height 70 [in_i] 70 [in_i] [facility] ([facility]) 5'10" Body weight 78.473 kg 78.473 kg [facility] ([facility]) Body weight 173.00 [lb_av] 173.00 [lb_av] [facility] ([facility]) Oxygen saturation in Arterial blood by Pulse oximetry 98 % 98 % [facility] ([facility]) Respiratory rate 18 /min 18 /min [facility] ( [facility]) Body temperature 96.8 [degF] 96.8 [degF] [facility] ([facility]) Heart rate 68 /min 68 /min [facility] ([facility]) Diastolic blood pressure 70 mm[Hg] 70 mm[Hg] [facility] ([facility]) Systolic blood pressure 124 mm[Hg] 124 mm[Hg] [facility] ([facility]) Body surface area Derived from formula 1.96 m2 1.96 m2 [facility] ([facility]) Body mass index (BMI) [Ratio] 24.8 kg/m2 24.8 k g/m2 [facility] ([facility]) Body height 70 [in_i] 70 [in_i] [facility] 5'10" Body weight 78.529 kg 78.529 kg [facility] ([facility]) Body weight 173.12 [lb_av] 173.12 [lb_av] [facility] ([facility]) Oxygen saturation in Arterial blood by Pulse oximetry 100 % 100 % [facility] ([facility]) Respiratory rate 18 /min 18 /min [facility] ( [facility]) Body temperature 97.4 [degF] 97.4 [degF] [facility] ([facility]) Heart rate 58 /min 58 /min [facility] Diastolic blood pressure 80 mm[Hg] 80 mm[Hg] [facility] ([facility]) Systolic blood pressure 110 mm[Hg] 110 mm[Hg] [facility] ([facility]) Respiratory rate 16 /min 16 /min [facility] ( [facility]) Heart rate 68 /min 68 /min [facility] ([facility]) Diastolic blood pressure 80 mm[Hg] 80 mm[Hg] [facility] ([facility]) Systolic blood pressure 120 mm[Hg] 120 mm[Hg] [facility] ([facility]) Diastolic blood pressure 72 mm[Hg] 72 mm[Hg] eCW1 ([facility]) Systolic blood pressure 114 mm[Hg] 114 mm[Hg] e CW1 ([facility]) Body mass index (BMI) [Ratio] 24.85 kg/m2 24.85 kg/m2 eCW1 ([facility]) Body height 70 [in_i] 70 [in_i] eCW1 ([facility]) Body weight 173.2 [lb_av] 173.2 [lb_av] eCW1 ([facility]) Body temperature 98.4 [degF] 98.4 [degF] [facility] ([facility]) Heart rate 54 /min 54 /min [facility] ([facility]) Diastolic blood pressure 68 mm[Hg] 68 mm[Hg] [facility] ([facility]) Systolic blood pressure 118 mm[Hg] 118 mm[Hg] [facility] ([facility]) Body surface area 1.96 m2 1.96 m2 [facility] ([facility]) Body surface area Derived from formula 1.96 m2 1.96 m2 [facility] ([facility]) Body mass index (BMI) [Ratio] 24.7 kg/m2 24.7 k g/m2 [facility] ([facility]) Body height 70 [in_i] 70 [in_i] [facility] ([facility]) 5'10" Body weight 78.076 kg 78.076 kg [facility] ([facility]) Body weight 172.12 [lb_av] 172.12 [lb_av] [facility] ([facility]) Oxygen saturation in Arterial blood by Pulse oximetry 98 % 98 % [facility] Respiratory rate 18 /min 18 /min [facility] ( [facility]) Diastolic blood pressure 72 mm[Hg] 72 mm[Hg] eCW1 ([facility]) Systolic blood pressure 116 mm[Hg] 116 mm[Hg] e CW1 ([facility]) Body mass index (BMI) [Ratio] 25.51 kg/m2 25.51 kg/m2 W1 ([facility]) Body height 70 [in_us] 70 [in_us] eCW1 ([facility]) Body weight Measured 177.8 [lb_av] 177.8 [lb_av ] eCW1 ([facility]) Body mass index (BMI) [Ratio] 25.39 kg/m2 25.39 kg/m2 eCW1 ([facility]) Body height 70 [in_us] 70 [in_us] eCW1 ([facility]) Body weight Measured 177 [lb_av] 177 [lb_av] eC W1 ([facility]) Body surface area 1.99 m2 1.99 m2 [facility] ([facility]) Body surface area Derived from formula 1.99 m2 1.99 m2 [facility] Body mass index (BMI) [Ratio] 25.6 kg/m2 25.6 k g/m2 [facility] ([facility]) Body height 70 [in_i] 70 [in_i] [facility] ([facility]) 5'10" Body weight 80.968 kg 80.968 kg [facility] ([facility]) Body weight 178.50 [lb_av] 178.50 [lb_av] [facility] ([facility]) Oxygen saturation in Arterial blood by Pulse oximetry 98 % 98 % [facility] ([facility]) Respiratory rate 16 /min 16 /min [facility] ( [facility]) Body temperature 98.2 [degF] 98.2 [degF] [facility] ([facility]) Heart rate 60 /min 60 /min [facility] ([facility]) Diastolic blood pressure 64 mm[Hg] 64 mm[Hg] [facility] Systolic blood pressure 114 mm[Hg] 114 mm[Hg] [facility] ([facility]) Respiratory rate 16 /min 16 /min [facility] ( [facility]) Heart rate 64 /min 64 /min [facility] ([facility]) Diastolic blood pressure 84 mm[Hg] 84 mm[Hg] [facility] ([facility]) Systolic blood pressure 118 mm[Hg] 118 mm[Hg] M [facility] ([facility]) ID Date Data Source [id number] 11/11/2020 04:39:06 PM EST [facility] Hospital Name Value Range Interpretation Code Description Data Source(s) WEIGHT RECORDED 170.00 pounds 170.00 pounds [facility] Height 70 Inches 070 Inches [facility] Patient Treatment Plan of Care Planned Activity Planned Date Details Description Data Source (s) Itraconazole 100 MG Oral Capsule 01/05/2020 12:00:00 AM EDT eCW1 ([facility]) calcipotriene 0.34611 MG/MG Topical Ointment 01/05/2020 12:00:00 AM EDT eCW1 ([facility])
[2020-11-13] MEDS ORDERED: VITAD400CA FT (12:44)
--- OUTSIDE RECORDS SUMMARY | 2020-11-13 12:48 | CCD ---
Author Author [facility] Organization [facility] Address Unknown Phone Unavailable Care Team Providers Care Patient Account Liaison Name Role Phone RgoerKeilyn RPA Unavailable Unavailable Roger, M Luz Marina [...] Roger, M Luz Marina RPA Unavailable Unavailable Orger, M Luz Marina RPA Unavailable Unavailable Roger, [...] J Samina PA Unavailable Unavailable Trickey, J Asmina PA Unavailable Unavailable Trickey, J Samina PA [...] Andrews MD Unavailable Michael Andrews MD Unavailable Michale Andrews MD Unavailable Michael Andrews MD Unavailable [...] Marina ANP-BC Unavailable Unavailable Roger, Ailyn Luz Mairna ANP-BC Unavailable Unavailable Roger, Ailyn Luz Marina ANP-BC Unavailable Unavailable Roger, Ailyn Luz Marnia ANP-BC Unavailable Unavailable Roger, Ailyn Luz Marina [...] is protected by Article 27-F of the [facility] Public Health law. If you continue you may have access to information: Regarding HIV / AIDS; Provided by facilities licensed or operated by the [facility] Office of Mental Health; or Provided by the [facility] Office for People With Developmental Disabilities. If such information is present, then the following [facility] mandated warning applies: This information has been [...] law may result in a fine or half-way sentence or both. A general authorization for the release of medical or other information is NOT sufficient authorization for further disc losure. Allergies and Adverse Reactions Type Description Substance Reaction Status Data Source(s ) BRANDNAME TYLENOL WITH CODEINE NO. 3 TYLENOL WITH CODEINE NO. 3 [facility] CLASS NSAID NSAID [facility] No Known Drug Allergies No Known Drug Allergies [facility] Drug allergy Ibuprofen Ibuprofen one kidney Active eCW1 ([facility]) Drug allergy Codeine Phosphate Drug allergy Nausea/Vomiting Active eCW1 ([facility]) NSAIDS NSAIDS NSAIDS one kidney Active eCW1 ([facility]) NSAIDS NSAIDS NSAIDS one kidney Active eCW1 ([facility]) NSAIDS NSAIDS NSAIDS one kidney Active eCW1 ([facility]) Family History Family Member Name Family Member Gender Family Member Status Date o f Status Description Data Source(s) Unknown Male Problem [facility]ENT ([facility]) Unknown Male Problem MEDENT ([facility] () Unknown Female Problem MEDENT ([facility] ) Encounters Encounter Providers Location Date Indications Data Source(s ) Outpatient Attender: Harrison Chan MDConsultant: Marianne KILLIAN 11/08/2020 07:00:00 AM EST - 11/08/2020 10:54:00 AM [facility] Patient discharged. Outpatient Attender: Harrison Chan MDConsultant: Marianne KILLIAN 11/04/2020 02:14:00 PM EST - 11/04/2020 02:14:00 PM [facility] Outpatient Attender: Luz Marina Duran ANP-BCConsultant: Marianne KILLIAN 11/02/2020 01:51:00 PM EST - 11/02/2020 01:51:00 PM [facility] Outpatient Attender: Luz Marina LISA-BCConsultant: Marianne KILLIAN 09/03/2020 09:02:00 AM EST - 09/03/2020 09:02:00 AM [facility] Outpatient Attender: Luz Marina LISA- Family Practice 12/2019 08:00:00 AM EST MED[facility] ([facility] Outpatient Attender: Samina KILLIAN Main office - [facility] 08/18/2020 07:15:00 AM EST MEDENT ([facility]) Office Visit, Est Pt., Level [address] [place] [address] 06/29/2020 12:00:00 AM EDT eCW1 ([facility]) Outpatient Attender: Luz Marina LISA-BCConsultant: Marianne KILLIAN 06/04/2020 08:57:00 AM EDT - 06/04/2020 08:57:00 AM EDT [facility] Outpatient Attender: Samina KILLIAN Main office - [facility] 05/17/2020 08:30:00 AM EDT MEDENT ([facility], ) Outpatient Attender: Luz Marina Duran RPA ADULT PC 03/09/2020 07:38:46 PM EDT [facility] [address] [place], [place] [address] 03/08/2020 12:00:00 AM EDT eCW1 ([facility]) Outpatient Attender: Luz Marina Duran [facility] ADULT PC 02/28/2020 12:11:42 AM EDT [facility] [address] [place] [address] 02/27/2020 12:00:00 AM EDT eCW1 ([facility]) Recurring Patient Referrer: Abraham Andrews MD 02/09/2020 10: 51:00 AM EDT [facility] [address] [place], [place] [phone] 02/04/2020 12:00:00 AM EDT eCW1 ([facility]) [facility] D[facility] [address] [place], [place] [id number] 02/02/2020 12:00:00 AM EDT eCW1 ([facility]) [facility] D[facility] [address] [place], [place] [phone] 01/06/2020 12:00:00 AM EDT eCW1 ([facility]) [facility] Derm[facility] [address] [place] [address] 01/05/2020 12:00:00 AM EDT eCW1 ([facility]) [facility] D[facility] [address] [place] [address] 01/05/2020 12:00:00 AM EDT eCW1 ([facility]) Outpatient Attender: Luz Marina [facility] Marianne KILLIAN 12/03/2019 10:02:00 AM EST - 12/03/2019 10:02:00 AM EST [facility] Outpatient Attender: Luz Marina LISA- Family Practice 12/2019 09:00:00 AM EST MEDENT ([facility]) Outpatient Attender: Samina KILLIAN [facility] 11/17/2019 09:00:00 AM EST MEDENT ([facility]) [facility] Dermat[facility] [address] [place] [address] 11/17/2019 12:00:00 AM EST [facility] Derm[facility] [address] [place] [phone] 11/07/2019 12:00:00 AM EST eCW1 ([facility]) Medications Medication Brand Name Start Date Product Form Dose Route Admi nistrative Instructions Pharmacy Instructions Status Indications Reaction Description Data Source(s) Ibuprofen 800 MG Oral Tablet Ibuprofen 11/05/2020 12:00:00 AM EST ORAL active MEDENT ([facility]) 800 mg 11/05/2020 12:00:00 AM EST tablet [...] BY MOUTH TWICE A DAY SOLD: 09/03/2020 [facility] NITROFURANTOIN, MACROCRYSTALS 25 MG / Ni trofurantoin, Monohydrate 75 MG Oral Capsule Nitrofurantoin Monohyd Macro 09/03/2020 12:00:00 AM EST ORAL completed MEDENT ([facility]) 200 mg 08/20/2020 12:00:00 AM EST tablet [...] active 4 capsule after a meal eCW1 ([facility]) calcipotriene 0.90801 MG/MG Topical Ointment Calcipotr iene 0.005 % Calcipotriene 0.005 % 01/05/2020 12:00:00 AM EDT active 1 application eCW1 ([facility]) 200 mg 12/06/2019 12:00:00 AM EST tablet [...] MOUTH ONCE DAILY SOLD: 10/26/2019 [facility] [place]-3 Acid Ethyl Esters (JAIL) 1000 MG Oral Capsule [place]-3 -Acid Ethyl Esters 10/23/2019 12:00:00 AM EST ORAL active MEDENT ([facility]) 200 mg 10/17/2019 12:00:00 AM EST tablet [...] 12:00:00 AM EST active M JEAN CLAUDE ([facility], ) 200 mg 09/16/2019 12:00:00 AM [...] type / Coverage type Policy ID Covered green party ID Covered green party's relationship to trivedi Policy Trivedi Plan Information [facility] [id number] SP [id number] BCBS EMPIRE CHAZ DIV [id number] SP [id number] MEDICARE [id number] SP [id number] BCBS EMPIRE CHAZ DIV UNAVAILABLE UNAVAILABLE [facility] [id number] SP [id number] MEDICARE PART A -O/P [id number] 18 [id number] [facility] MEDIC[facility] PART A [facility] [id number] 18 [id number] [facility] EMPIRE PLAN [id number] 18 [id number] [facility] [id number] [facility] [id number] [place] Plan P [id number] S [id number] BCBS EMPIRE CHAZ DIV [id number] SP [id number] [facility] [id number] SP [id number] MEDICARE [id number] SP [id number] BCBS EMPIRE CHAZ DIV [id number] SP [id number] [facility] [id number] SP [id number] BCBS EMPIRE CHAZ DIV [id number] SP [id number] MEDICARE [id number] SP [id number] A [facility] [place] Plan Medigap Part B [id number] Self [id number] [facility] Medicare Part A [place] Medicare Primary [id number] Self [id number] [facility] Commercial [id number] Self [id number] Medicare Part B Medicare Primary [id number] Self [id number] [facility] [place] Plan Medigap Part B [id number] Self [id number] Medicare Part A [place] Medicare Primary [id number] Self [id number] MEDICARE PART A [facility] [id number] 18 [id number] [place] Plan Medigap Part B [id number] Self [id number] Medicare - NGS Medicare Primary [id number] Self [id number] [employer] Commercial [id number] Self [id number] Medicare Part B Medicare Primary [id number] Self [id number] United [employer] Commercial [id number] Self [id number] Medicare Part B Medicare Primary [id number] Self [id number] United [employer] Commercial [id number] Self [id number] Medicare Part B Medicare Primary [id number] Self [id number] United [employer] Commercial [id number] Self [id number] Medicare Part B Medicare Primary [id number] Self [id number] United [employer] Commercial [id number] Self [id number] Medicare Part B Medicare Primary [id number] Self [id number] MEDICARE [id number] SP [id number] A [employer] Commercial [id number] Self [id number] Medicare Part B Medicare Primary [id number] Self [id number] BCBS EMPIRE CHAZ DIV [id number] SP [id number] Medicare Part B Medicare Primary Self United [employer] Commercial Self [place] Plan F [id number] [id number] [facility] Insurance Workers 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 Self [place] [facility] Health Maintenance Organization (O) Self [place] ([place], [place]) Medicare Primary Self EMPIRE ([facility] O [id number] S [id number] STATE INS [facility] W [id number] Empl [id number] [facility] [id number] 18 [id number] EMPIRE PLAN [facility] U [id number] Self [id number] STATE INS FUND W [id number] Empl [id number] STATE INSURANCE FUND [id number] SP [id number] [facility] P [id number] S [id number] [place] P [id number] S [id number] STATE INSURANCE FUND [id number] SP [id number] [facility] [id number] SP [id number] P UNAVAILABLE UNAVAILA BLE [employer] S [id number] S [id number] STATE INSURANCE FUND P [id number] S [id number] STATE INSURANCE FUND [id number] SP [id number] BCBS EMPIRE CHAZ DIV [id number] SP [id number] Problems, Conditions, and Diagnoses Code Display Name Description Problem Type Effective Dates Data Source(s) 846285877 Inguinal hernia Inguinal hernia Problem 11/04/2020 12:0 0:00 AM EST MED[facility]) D22.62 [id number] Melanocytic nevi of left upper l imb, including shoulder Problem 06/29/2020 12:00:00 AM EDT eCW1 ([facility]) D22.71 203060396 Melanocytic nevi of right lower limb, inc luding hip Problem 06/29/2020 12:00:00 AM EDT eCW1 ([facility]) D22.72 [id number] Melanocytic nevi of left lower l imb, including hip Problem 06/29/2020 12:00:00 AM EDT eCW1 ([facility]) L81.4 663782569 Lentigines Problem 06/29/2020 12:00:00 AM ED T eCW1 ([facility]) D18.01 1341834 Olson angioma Problem 06/29/2020 12:00:00 A M EDT eCW1 ([facility]) D22.5 206880156 Melanocytic nevi of trunk Problem 06/29/2020 12:00:00 AM EDT eCW1 ([facility]) Z85.828 737167261 History of nonmelanoma skin cancer Proble m 06/29/2020 12:00:00 AM EDT eCW1 ([facility]) D22.61 906626117 Melanocytic nevi of right upper limb, including shoulder Problem 06/29/2020 12:00:00 AM EDT eCW1 ([facility]) D22.30 310371747 Melanocytic nevi of face Problem 06/29/2020 12:00:00 AM EDT eCW1 ([facility]) L57.0 506657533 AK (actinic keratosis) Problem 06/29/2020 12 :00:00 AM EDT eCW1 ([facility]) L82.1 407532607 SK (seborrheic keratosis) Problem 06/29/2020 12:00:00 AM EDT eCW1 ([facility]) D22.4 07997617 Multiple benign nevi of neck Problem 020 12:00:00 AM EDT eCW1 ([facility]) 289365185 Insomnia Insomnia Problem 06/04/2020 12:00:00 AM ED T MEDENT ([facility]) 12475192 Vitamin D deficiency Vitamin D deficiency Problem 06/04/2020 12:00:00 AM EDT MEDENT ([facility]) 56277581 Neoplasm of uncertain behavior of skin N eoplasm of uncertain behavior of skin Problem 06/04/2020 12:00:00 AM EDT MEDENT ([facility]) 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 Problem 06/04/2020 12:00:00 AM EDT MEDENT ([facility]) 514696727 Taking medication Taking medication Problem 06/04 12:00:00 AM EDT MEDENT ([facility]) 918468986 Chronic pain syndrome Chronic pain syndrome Problem 06/04/2020 12:00:00 AM EDT MEDENT ([facility]) 963400195 Gastroesophageal reflux disease Gastroesophageal reflux disease Problem 06/04/2020 12:00:00 AM EDT MEDENT ([facility]) 28864639 Migraine Migraine Problem 06/04/2020 12:00:00 AM ED T MEDENT ([facility]) 58348095 Neck pain Neck pain Problem 06/04/2020 12:00:00 AM ED T MEDENT ([facility]) 08793567 Obstructive sleep apnea syndrome Obstructive sle ep apnea syndrome Problem 06/04/2020 12:00:00 AM EDT MEDENT ([facility]) 886431423 Pure hypercholesterolemia Pure hypercholesterolemia Pr oblem 06/04/2020 12:00:00 AM EDT MEDENT ([facility]) L11.1 18569705 Transient acantholytic dermatosis [[place] ] Problem 02/02/2020 12:00:00 AM EDT eCW1 ([facility]) L11.1 35755315 Transient acantholytic dermatosis [[place] ] Problem 02/02/2020 12:00:00 AM EDT eCW1 ([facility]) K4090 Unilateral inguinal hernia, without obstruction or gangrene, not specified as recurrent Unilateral inguinal hernia, without obst ruction or gangrene, not specified as recurrent Diagnosis 11/08/2020 07:00:00 AM [facility] G4733 Obstructive sleep apnea (adult) (pediatr ic) Obstructive sleep apnea (adult) (pediatric) Diagnosis 11/02/2020 01:51:00 PM [facility] R7303 Prediabetes Prediabetes Diagnosis 11/02/2020 01:51:00 PM [facility] I10 Essential (primary) hypertension Essential (primary) h ypertension Diagnosis 11/02/2020 01:51:00 PM [facility] E7800 Pure hypercholesterolemia, unspecified P ure hypercholesterolemia, unspecified Diagnosis 11/02/2020 01:51:00 PM [facility] K219 Gastro-esophageal reflux disease without esophagitis Gastro-esophageal reflux disease without esophagitis Diagnosis 11/02/2020 01:51:00 PM ES T [facility] N34207 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 (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 O ther termination clerk (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 Diagnosis 09/03/2020 09:02:00 AM [facility] G894 Chronic pain syndrome Chronic pain syndrome Diagnosis 09/03/2020 09:02:00 AM [facility] E559 Vitamin D deficiency, unspecified Vitamin D defi ciency, unspecified Diagnosis 09/03/2020 09:02:00 AM [facility] W16188 Migraine, unspecified, not intractable, without status migrainosus Migraine, unspecified, not intractable, without status migrainosus Diagnosis 09/03/2020 09:02:00 AM [facility] M542 Cervicalgia Cervicalgia Diagnosis 09/03/2020 09:02:00 AM [facility] R809 Proteinuria, unspecified Proteinuria, unspecified Diag nosis 09/03/2020 09:02:00 AM [facility] R319 Hematuria, unspecified Hematuria, unspecified Diagnosi s 09/03/2020 09:02:00 AM [facility] R300 Dysuria Dysuria Diagnosis 09/03/2020 09:02:00 AM ES T [facility] Surgeries/Procedures Procedure Description Date Indications Data Source(s) Brief Emotional/Behav Assessment W/ Scoring Doc Per Standard Inst 06/04/2020 12:00:00 AM EDT MEDENT ([facility]) Admin Patient Focused Health Risk Assessment Instrument 06/04/2020 12:00:00 AM EDT MEDENT ([facility]) TANGNTL BX SKIN SINGLE LES 02/04/2020 12:00:00 AM EDT eCW1 ([facility]) TeleMedicine Est. Pt. Level 3 02/02/2020 12:00:00 AM E DT eCW1 ([facility]) TeleMedicine Est. Pt. Level 4 01/05/2020 12:00:00 AM E DT eCW1 ([facility]) Results ID Date Data Source [id number] 11/04/2020 03:02:00 PM EST [facility] Name Value Range Interpretation Code Description Data Zaynab rce(s) Supporting Document(s) SARS coronavirus 2 RNA Not Detected [facility] This lab was ordered by [facility] beronica and reported by [facility]. ID Date Data Source [id number] 11/07/2020 06:50:00 AM EST [facility] Name Value Range Interpretation Code Description Data Zaynab rce(s) Supporting Document(s) SARS-CoV-2, VIKAS Not Detected Not Detected [facility] This nucleic acid amplification test was developed and its performancecharacteristics determined by [facility]. Nucleic acidamplification tests include RT-PCR and [...] rce(s) Supporting Document(s) SARS-CoV2 Rapid Antigen Negative [facility] This lab was ordered by [facility] and reported by [facility]. ID Date Data Source [id number] 09/03/2020 09:30:00 AM EST MEDENT ([facility]) Name Value Range Interpretation Code Description Data Zaynab rce(s) Supporting Document(s) Culture Urine Laboratory test result MEDENT ([facility]) {SPECIMEN TYPE: RANDOM ID Date Data Source [id number] 09/03/2020 09:29:00 AM EST MEDENT ([facility]) Name Value Range Interpretation Code Description Data Zaynab rce(s) Supporting Document(s) Color of Urine Laboratory test result MEDENT ([facility]) Spec [place] 1.015 [facility] ([facility]) pH of Urine by Test strip 6 MEDE NT ([facility]) Appearance of Urine Laboratory test result MED[facility] ([facility]) Leukocytes Laboratory test result MED[facility] ([facility]) Nitrate [Presence] in Urine Laboratory test result MED[facility] ([facility]) Protein [Presence] in Urine by Test strip Laboratory test result MEDENT ([facility]) Ketones [Presence] in Urine by Test strip Laboratory test result MEDENT ([facility]) Inhouse Glucose Laboratory test result MED[facility] ([facility]) Urobilinogen Laboratory test result MED[facility] ([facility]) Blood type and Indirect antibody screen panel - Blood Laboratory test result MEDENT ([facility]) Bilirubin.total [Presence] in Urine by Test strip Laboratory test res ult MEDENT ([facility]) ID Date Data Source [id number] 09/07/2020 08:35:00 PM EST [facility] Name Value Range Interpretation Code Description Data Zaynab rce(s) Supporting Document(s) CULTURE URINE [facility] _CULTURE URINE_$$[id number]$$[id number]$$306477$$335958$$957750$$653512$$844640$$041680$$265333$$ 153987$$172936$$102711$$233057$$495955$$649932$$859579$$526470$$568728$$451707$$ 065627$$328633$$310390$$296548$$768914$$732193$$561231$$242368 -- Continued on next page --Patient: MARLA Odom Order: [id number] Page 2Culture: CULTURE URINE Status: Final ==== -- Continued on next page --Patient: MARLA Odom Order: [id number] Page 2Culture: CULTURE URINE Status: Prelim =====$$[id number]$$[id number] DATE/TIME: 09/07/2020 15:06Culture: CULTURE URINE Status: FinalUrine Culture,Comprehensive: P1No growth in 36 - 48 hours. Previous result entered on 09/06/2020 07:11 ET No growth after 18-24 hours.P1 Test performed by: Nacho SÁNCHEZ #: [id number] [address] [place] [address] [id number] [facility] [address]Medical Director : Dilan Rodriguez MD NPI #:Lab Di toby : 09/06/20.0836.XMT.SENT REF 09/07/20.5.XMT.SENT REF Procedure Social History Code Duration Value Status Description Data Source(s ) Smoking 06/29/2020 12:00:00 AM EDT Never Smoker completed Never S moker eCW1 ([facility]) Vital Signs ID Date Data Source UNK Name Value Range Interpretation Code Description Data Source(s) Oxygen saturation in Arterial blood by Pulse oximetry 98 % 98 % [facility] ([facility]) Respiratory rate 18 /min 18 /min MED[facility] ( [facility]) Body temperature 98.2 [degF] 98.2 [degF] MED[facility] ([facility]) Heart rate 70 /min 70 /min MEDENT ([facility]) Diastolic blood pressure 78 mm[Hg] 78 mm[Hg] MED[facility] ([facility]) Systolic blood pressure 123 mm[Hg] 123 mm[Hg] M EDENT ([facility]) Body surface area Derived from formula 1.96 m2 1.96 m2 [facility] Body mass index (BMI) [Ratio] 24.8 kg/m2 24.8 k g/m2 [facility] ([facility]) Body height 70 [in_i] 70 [in_i] MEDENT ([facility]) 5'10" Body weight 78.473 kg 78.473 kg MEDENT ([facility]) Body weight 173.00 [lb_av] 173.00 [lb_av] MEDEN T ([facility]) Body surface area Derived from formula 1.96 m2 1.96 m2 [facility] Body mass index (BMI) [Ratio] 24.8 kg/m2 24.8 k g/m2 [facility] Body height 70 [in_i] 70 [in_i] MEDENT ([facility]) 5'10" Body weight 78.473 kg 78.473 kg MEDENT ([facility]) Body weight 173.00 [lb_av] 173.00 [lb_av] MEDEN T ([facility]) Oxygen saturation in Arterial blood by Pulse oximetry 98 % 98 % [facility] ([facility]) Respiratory rate 18 /min 18 /min [facility] ( [facility]) Body temperature 96.8 [degF] 96.8 [degF] [facility] ([facility]) Heart rate 68 /min 68 /min MEDENT ([facility]) Diastolic blood pressure 70 mm[Hg] 70 mm[Hg] [facility] ([facility]) Systolic blood pressure 124 mm[Hg] 124 mm[Hg] M EDENT ([facility]) Body surface area Derived from formula 1.96 m2 1.96 m2 [facility] ([facility]) Body mass index (BMI) [Ratio] 24.8 kg/m2 24.8 k g/m2 [facility] ([facility]) Body height 70 [in_i] 70 [in_i] [facility] ([facility]) 5'10" Body weight 78.529 kg 78.529 kg [facility] ([facility]) Body weight 173.12 [lb_av] 173.12 [lb_av] MEDEN T ([facility]) Oxygen saturation in Arterial blood by Pulse oximetry 100 % 100 % [facility] Respiratory rate 18 /min 18 /min [facility] Body temperature 97.4 [degF] 97.4 [degF] [facility] Heart rate 58 /min 58 /min [facility] Diastolic blood pressure 80 mm[Hg] 80 mm[Hg] [facility] ([facility]) Systolic blood pressure 110 mm[Hg] 110 mm[Hg] [facility] Respiratory rate 16 /min 16 /min MEDENT ( [facility] ) Heart rate 68 /min 68 /min MEDENT ([facility], ) Diastolic blood pressure 80 mm[Hg] 80 mm[Hg] MEDENT ([facility], ) Systolic blood pressure 120 mm[Hg] 120 mm[Hg] M EDENT ([facility], ) Diastolic blood pressure 72 mm[Hg] 72 mm[Hg] eCW1 ([facility]) Systolic blood pressure 114 mm[Hg] 114 mm[Hg] e CW1 ([facility]) Body mass index (BMI) [Ratio] 24.85 kg/m2 24.85 kg/m2 [facility] ([facility]) Body height 70 [in_i] 70 [in_i] eCW1 ([facility]) Body weight 173.2 [lb_av] 173.2 [lb_av] eCW1 ([facility]) Body temperature 98.4 [degF] 98.4 [degF] MEDENT ([facility]) Heart rate 54 /min 54 /min MEDENT ([facility]) Diastolic blood pressure 68 mm[Hg] 68 mm[Hg] MEDENT ([facility]) Systolic blood pressure 118 mm[Hg] 118 mm[Hg] M EDENT ([facility]) Body surface area 1.96 m2 1.96 m2 MEDENT ([facility]) Body surface area Derived from formula 1.96 m2 1.96 m2 [facility] ([facility]) Body mass index (BMI) [Ratio] 24.7 kg/m2 24.7 k g/m2 MEDENT ([facility]) Body height 70 [in_i] 70 [in_i] MEDENT ([facility]) 5'10" Body weight 78.076 kg 78.076 kg MEDENT ([facility]) Body weight 172.12 [lb_av] 172.12 [lb_av] MEDEN T ([facility]) Oxygen saturation in Arterial blood by Pulse oximetry 98 % 98 % MEDENT ([facility]) Respiratory rate 18 /min 18 /min MEDENT ( [facility]) Diastolic blood pressure 72 mm[Hg] 72 mm[Hg] eCW1 ([facility]) Systolic blood pressure 116 mm[Hg] 116 mm[Hg] e CW1 ([facility]) Body mass index (BMI) [Ratio] 25.51 kg/m2 25.51 kg/m2 W1 ([facility]) Body height 70 [in_us] 70 [in_us] eCW1 ([facility]) Body weight Measured 177.8 [lb_av] 177.8 [lb_av ] eCW1 ([facility]) Body mass index (BMI) [Ratio] 25.39 kg/m2 25.39 kg/m2 eCW1 ([facility]) Body height 70 [in_us] 70 [in_us] eCW1 ([facility]) Body weight Measured 177 [lb_av] 177 [lb_av] eC W1 ([facility]) Body surface area 1.99 m2 1.99 m2 MEDENT ([facility]) Body surface area Derived from formula 1.99 m2 1.99 m2 [facility] ([facility]) Body mass index (BMI) [Ratio] 25.6 kg/m2 25.6 k g/m2 MED[facility] ([facility]) Body height 70 [in_i] 70 [in_i] MEDENT ([facility]) 5'10" Body weight 80.968 kg 80.968 kg MEDENT ([facility]) Body weight 178.50 [lb_av] 178.50 [lb_av] MEDEN T ([facility]) Oxygen saturation in Arterial blood by Pulse oximetry 98 % 98 % [facility] Res[facility] rate 16 /min 16 /min [facility] Body temperature 98.2 [degF] 98.2 [degF] MEDENT ([facility]) Heart rate 60 /min 60 /min [facility] ([facility]) Diastolic blood pressure 64 mm[Hg] 64 mm[Hg] MEDENT ([facility]) Systolic blood pressure 114 mm[Hg] 114 mm[Hg] M EDENT ([facility]) Respiratory rate 16 /min 16 /min MEDENT ( [facility] ) Heart rate 64 /min 64 /min MEDENT ([facility] ) Diastolic blood pressure 84 mm[Hg] 84 mm[Hg] MEDENT ([facility]) Systolic blood pressure 118 mm[Hg] 118 mm[Hg] M EDENT ([facility]) ID Date Data Source [id number] 11/11/2020 04:39:06 PM EST [facility] Name Value Range Interpretation Code Description Data Source(s) WEIGHT RECORDED 170.00 pounds 170.00 pounds [facility] Height 70 Inches 070 Inches [facility] Patient Treatment Plan of Care Planned Activity Planned Date Details Description Data Source (s) Itraconazole 100 MG Oral Capsule 01/05/2020 12:00:00 AM EDT eCW1 ([facility]) calcipotriene 0.34301 MG/MG Topical Ointment 01/05/2020 12:00:00 AM EDT eCW1 ([facility])
[2020-11-13] MEDS ORDERED: ONDANSETRON 4MG/2ML VIAL IV ONE (13:45)
[2020-11-13] MEDS ORDERED: NS 1,000 ML IV ONE (13:45)
[2020-11-13 13:59] LABS: BASO % 0.1 % (0.0-1.0); HEMATOCRIT 36.5 % (42.0-52.0); HEMOGLOBIN 12.3 g/dl (13.5-17.5); LYMPH # 0.7 10^3/uL (1.5-5.0); LYMPH % 8.6 % (24.0-44.0); MEAN CORPUSCULAR HEMOGLOBIN 30.4 pg (27.0-33.0); MEAN CORPUSCULAR HGB CONC 33.7 g/dl (32.0-36.5); MEAN CORPUSCULAR VOLUME 90.3 fl (80.0-96.0); MONO # 0.2 10^3/uL (0.0-0.8); MONO % 3.1 % (2.0-8.0); NEUTROPHILS # 6.6 10^3/uL (1.5-8.5); NEUTROPHILS % 87.8 % (36.0-66.0); PLATELET COUNT, AUTOMATED 162 10^3/uL (150-450); RED BLOOD COUNT 4.04 10^6/uL (4.30-6.10); WHITE BLOOD COUNT 7.5 10^3/uL (4.0-10.0)
--- NOTE | 2020-11-13 14:07 | REP ---
INDICATION: nausea vomting, recent left inguinal hernia repair. COMPARISON: Comparison chest radiograph December 17, 2013.. TECHNIQUE: Three views including upright chest radiograph. FINDINGS: Upright chest radiograph shows no evidence of infiltrate or free subdiaphragmatic air. Heart is not enlarged. A dorsal column stimulator lead is noted in the midthoracic spine. Supine and erect views of the abdomen show clips in the upper abdomen. The power plant for the dorsal column stimulator is seen projecting in the left mid abdomen. There are surgical clips in the left pelvis as well. There is moderate colonic stool noted throughout. No small or large bowel dilation is seen. No air-fluid level seen. Psoas margins and flank stripes are intact. No evidence of organomegaly or pathologic calcification. IMPRESSION: Dorsal column stimulator and postoperative clips. Moderate stool. Otherwise negative acute abdominal series.. <Electronically signed by London Dyson > 11/13/20 [id number]
[2020-11-13 14:41] LABS: ALBUMIN 3.9 GM/DL (3.2-5.2); BILIRUBIN,DIRECT 0.2 MG/DL (0.0-0.2); BILIRUBIN,TOTAL 0.7 MG/DL (0.2-1.0); FREE THYROXINE INDEX 2.3 % (1.4-3.8); THYROID STIMULATING HORMONE 0.708 uIU/ML (0.358-3.740); THYROXINE (T4) 6.7 UG/DL (4.5-12.0); TOTAL PROTEIN 6.8 GM/DL (6.4-8.2)
[2020-11-13] MEDS ORDERED: ONDA4TAB6 PO (15:30)
[2020-11-13 15:51] VITALS: BP 120/63
== END 2020-11-13 15:53 | disposition home or self-care (01) ==
LOC: M ED 12:15
DX: G43.909 Migraine, unspecified, not intractable, without status migrainosus (principal); R11.2 Nausea with vomiting, unspecified; Z98.890 Other specified postprocedural states; Z88.6 Allergy status to analgesic agent; Z91.041 Radiographic dye allergy status; Z79.899 Other long term (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
CPT/HCPCS: 74021; 80047; 80076; 83605; 83690; 84436; 84443; 84479; 85025; 96361; 96374; 99284; J2405